=== PATIENT | female | born 1945 | race Caucasian/White ===

== ENCOUNTER 2019-03-01 15:15 | Inpatient (IN) | payer OTHER ==
--- NOTE | 2019-03-01 15:27 | PDOC ---
Rapid Medical Evaluation Chief Complaint: Wound Time Seen by Provider: 03/01/19 15:24 Medical Evaluation: Allergies Allergy/AdvReac Type Severity Reaction Status Date / Time No Known Allergies Allergy Verified 03/01/19 14:06 03/01/19 15:26 I performed a brief in-person evaluation of this patient. 73-year-old female with IDDM, SVT, HTN, and morbid obesity with chronic left heel ulceration, sent from Wound Center today for admission for cellulitis. Pertinent physical exam findings: Alert, oriented, no distress. Afebrile, hypertensive. Foot dressed in Wound Center. I have ordered the following: Basic labs, CXR, & EKG in anticipation of admission. Patient to proceed to the ED for further evaluation. Discharge Disposition - Diagnosis Cellulitis - Referrals - Patient Instructions - Post Discharge Activity
--- NOTE | 2019-03-01 18:24 | PDOC ---
Attending Attestation - Resident Resident Name: Bernardo Lara - ED Attending Attestation I have performed the following: I have examined & evaluated the patient, The case was reviewed & discussed with the resident, I agree w/resident's findings & plan, Exceptions are as noted - HPI HPI: 03/01/19 18:49 73yo hx IDDM c/b L lateral plantar heel wound, HTN presents to the ED from wound clinic for admission for cellulitis from L heel wound. Pt follows with Dr. Mcconnell for wound care, saw him today and was sent to the ED given concern for infection. Pt denies f/c, N/V. Has not been on abx for this wound in last month. Denies headache, focal weakness/numbness, dizziness, CP, SOB, abd pain. - Physicial Exam PE: 03/02/19 23:55 GENERAL: Awake, alert, and fully oriented, in no acute distress. Morbidly obese EYES: PERRLA, EOMI, sclera anicteric, conjunctiva clear ENT: Oropharynx clear without exudates. Moist mucosa NECK: Normal ROM, supple, no lymphadenopathy, JVD, or masses LUNGS: Breath sounds equal, clear to auscultation bilaterally. No wheezes, and no crackles HEART: Regular rate and rhythm, normal S1 and S2, no murmurs, rubs or gallops ABDOMEN: Soft, nontender, normoactive bowel sounds. No guarding, no rebound. No masses EXTREMITIES: L plantar lateral heel with punched in malodorous, erythematous ulcer with surrounding indurartion NEUROLOGICAL: Normal speech, cranial nerves intact, equal strenght and sensation b/l - Medical Decision Making 73yo F presents to the ED for admission of IV abx for infected heel ulcer Appears infected with surrounding cellulitis No systemic signs of infection Plan for labs, IV abx, XR, admission
--- NOTE | 2019-03-01 18:56 | PDOC ---
History of Present Illness - General Chief Complaint: Wound Stated Complaint: CELLULITIS LEFT FOOT Time Seen by Provider: 03/01/19 15:24 History Source: Patient Exam Limitations: No Limitations - History of Present Illness Initial Comments: 03/01/19 19:30 73 yo female pmh HTN, SVT, IDDM, chronic left heel ulcer presents to ED from Wound Center for cellulitis admission. Pt states she has had a chronic left heel ulcer and within the last 2 weeks has had pain, redness and warmth to the left lateral heel region that has expanded. Pt recently on antibiotics for wound and has required admission for IV antibiotics in the past. Denies F/C/N?V , abdominal pain, changes in bowel or bladder habits, CP, SOB. Past History - Past Medical History Allergies/Adverse Reactions: Allergies Allergy/AdvReac Type Severity Reaction Status Date / Time No Known Allergies Allergy Verified 03/01/19 14:06 Home Medications: Ambulatory Orders Glipizide 10 mg PO TID 04/27/18 Hydrochlorothiazide [Hctz -] 12.5 mg PO DAILY 04/27/18 Tramadol HCl 50 mg PO QID 03/01/19 Aspirin [Aspirin EC] 81 mg PO DAILY 03/02/19 Carvedilol 3.125 mg PO BID 03/02/19 Silver Sulfadiazine 1% Top Cr [Silvadene -] 1 applic TP BID 03/02/19 metFORMIN XR [Glucophage Xr -] 500 mg PO TID 03/02/19 Collagenase Clostridium Hist. [Santyl -] 1 applic TP DAILY #1 tube 03/06/19 Docusate Sodium [Colace -] 100 mg PO BID PRN #60 capsule 03/06/19 Ferrous Sulfate [Feosol] 325 mg PO BID #60 ud 03/06/19 Amox-Tr/K Cl [Augmentin - 500Mg Tablet] 1 tab PO BID 6 Days #12 tablet 03/07/19 Cyclobenzaprine HCl 5 mg PO DAILY PRN #14 tablet 03/07/19 Cardiac Disorders: Yes (SVT) COPD: No Diabetes: Yes (DM, NEUROPATHY) Disorders: Yes (KIDNEY STONES) HTN: Yes Kidney Stones: Yes - Surgical History Appendectomy: Yes - Immunization History Immunization Up to Date: No - Psycho Social/Smoking Cessation Hx Smoking History: Never smoked Have you smoked in the past 12 months: No Number of Cigarettes Smoked Daily: 0 Information on smoking cessation initiated: No Hx Alcohol Use: No Drug/Substance Use Hx: No Substance Use Type: None Review of Systems - Review of Systems Constitutional: No: Chills, Fever Respiratory: No: Shortness of Breath Cardiac (ROS): No: Chest Pain ABD/GI: No: Abdominal Distended, Constipated, Diarrhea, Nausea, Vomiting : No: Burning, Dysuria, Flank Pain, Hematuria Musculoskeletal: Yes: Other (left lateral ankle pain swelling and warmth). No: Back Pain Neurological: No: Headache, Numbness, Paresthesia *Physical Exam - Vital Signs Last Vital Signs Temp Pulse Resp BP Pulse Ox 98.4 F 69 16 189/85 H 99 03/01/19 15:25 03/01/19 15:25 03/01/19 15:25 03/01/19 15:25 03/01/19 15:25 - Physical Exam General Appearance: Yes: Nourished, Appropriately Dressed. No: Apparent Distress HEENT: positive: EOMI, EZIO Neck: positive: Supple. negative: Rigid, Carotid bruit Respiratory/Chest: positive: Lungs Clear, Normal Breath Sounds. negative: Respiratory Distress, Rapid RR, Decreased Breath Sounds, Paradoxal Breathing, Crackles, Rales, Rhonchi Cardiovascular: positive: Regular Rhythm, Regular Rate, S1, S2, Edema. negative : JVD, Murmur Vascular Pulses: Dorsalis-Pedis (R): 4+, Doralis-Pedis (L): 4+ Gastrointestinal/Abdominal: positive: Flat, Soft. negative: Pulsatile Mass, Protuberent, Distended, Guarding, Rebound, Tenderness Musculoskeletal: negative: CVA Tenderness Extremity: positive: Normal Capillary Refill, Tender, Pedal Edema, Swelling, Erythema. negative: Calf Tenderness Integumentary: positive: Erythema, Swelling Neurologic: positive: Fully Oriented, Alert, Normal Mood/Affect, Normal Response , Motor Strength /5 ED Treatment Course - LABORATORY CBC & Chemistry Diagram: 03/04/19 09:00 03/04/19 09:00 Medical Decision Making - Medical Decision Making 03/01/19 19:35 73 yo female pmh HTN, SVT, IDDM, chronic left heel ulcer presents to ED from Wound Center for cellulitis admission. Pt states she has had a chronic left heel ulcer and within the last 2 weeks has had pain, redness and warmth to the left lateral heel region that has expanded. Pt recently on antibiotics for wound and has required admission for IV antibiotics in the past. Denies F/C/N?V , abdominal pain, changes in bowel or bladder habits, CP, SOB. NAD, awake and alert Pt complains of left lateral malleolar redness, swelling, warmth and pain for 2 weeks. Black line outlines affected region from wound center, no extension noted in the ED Labs x ray and likely admission for IV antibiotics s/o to night team Discharge - Discharge Information Problems reviewed: Yes Clinical Impression/Diagnosis: Cellulitis Qualifiers: Site of cellulitis: extremity Site of cellulitis of extremity: lower extremity Laterality: left Qualified Code(s): L03.116 - Cellulitis of left lower limb Condition: Improved Disposition: PHYSICAL REHABILATION FACILITY - Follow up/Referral - Patient Discharge Instructions - Post Discharge Activity
[2019-03-01 19:45] LABS: BASO % 1.2 % (0-2.0); EOS % 3.4 % (0-4.5); HEMATOCRIT 27.8 % (32.4-45.2); HEMOGLOBIN 9.2 GM/dL (10.7-15.3); MCH 28.7 pg (25.7-33.7); MEAN CELL VOLUME 87.1 fl (80-96); MEAN PLT VOLUME 9.8 fl (7.5-11.1); MONO % 9.5 % (3.8-10.2); NEUT % 61.9 % (42.8-82.8); PLATELET COUNT 238 K/MM3 (134-434); RBC 3.19 M/mm3 (3.60-5.2); RDW 14.7 % (11.6-15.6); WHITE BLOOD COUNT 6.6 K/mm3 (4.0-10.0)
--- NOTE | 2019-03-01 20:36 | PDOC ---
*Physical Exam - Vital Signs Last Vital Signs Temp Pulse Resp BP Pulse Ox 98.4 F 69 16 189/85 H 99 03/01/19 15:25 03/01/19 15:25 03/01/19 15:25 03/01/19 15:25 03/01/19 15:25 ED Treatment Course - LABORATORY CBC & Chemistry Diagram: 03/01/19 19:00 03/01/19 19:47 - ADDITIONAL ORDERS Additional order review: 03/01/19 19:00 RBC 3.19 L MCV 87.1 MCHC 33.0 RDW 14.7 MPV 9.8 Neutrophils % 61.9 Lymphocytes % 24.0 Monocytes % 9.5 Eosinophils % 3.4 D Basophils % 1.2 Medical Decision Making - Medical Decision Making 03/01/19 20:34 Sign out received from Dr Jane Clark Paty is a 73yo woman with a PMH of HTN, SVT, IDDM, chronic left heel wound who presents from wound care with LLE cellulitis. She has been on antibiotics at home recently wihtout improvement and has needed IV antibiotics in the past. ED course so far notable for: - Malodorous, erythematous, edematous, warm wound on exam - Difficulty obtaining access. US-guided IV placed by Dr Lara - Labs pending 03/01/19 22:02 - Labs without significant abnormalities - EKG completed. NSR, HR 70, normal intervals, left axis. No t-wave or ST abnormalities - Will send microblog for admission. 03/01/19 22:31 - Sign out given to Dr Jovan Clay. Will admit to tele for additional workup Discussed with Dr Bruce Callahan PGY2 Discharge - Discharge Information Problems reviewed: Yes Clinical Impression/Diagnosis: Cellulitis Qualifiers: Site of cellulitis: extremity Site of cellulitis of extremity: lower extremity Laterality: left Qualified Code(s): L03.116 - Cellulitis of left lower limb Condition: Stable - Admission Yes - Follow up/Referral Referrals: Camacho Tapia MD [Primary Care Provider] - - Patient Discharge Instructions - Post Discharge Activity
[2019-03-01 20:53] LABS: ALBUMIN 3.4 g/dl (3.4-5.0); BILIRUBIN,TOTAL 0.4 mg/dL (0.2-1); BLOOD UREA NITROGEN 33.1 mg/dL (7-18); CALCIUM 9.2 mg/dL (8.5-10.1); POTASSIUM 4.6 mmol/L (3.5-5.1)
[2019-03-01] MEDS ORDERED: PIPERACILLIN/TAZOB 4.5 GM 4.5 GM in DEXTROSE 5%-WATER - 100 ML IVPB ONE (21:44)
[2019-03-01] MEDS ORDERED: VANCOMYCIN 1,000 MG in DEXTROSE 5%-WATER - 250 ML IVPB ONE (21:44)
--- NOTE | 2019-03-01 22:35 | PN ---
Teaching Attending Note Name of Resident: Jovan Clay ATTENDING PHYSICIAN STATEMENT I saw and evaluated the patient. I reviewed the resident's note and discussed the case with the resident. I agree with the resident's findings and plan as documented. SUBJECTIVE: Patient is a 73 year old woman with a PMH of Morbid obesity, HTN, SVT, Insulin- treated DM, Diabetic neuropathy, Kidney stones and Chronic left heel ulcer who presents to ER from Wound Center for admission for cellulitis. Patient states she has had a chronic left heel ulcer and within the last 2 weeks has had pain, redness and warmth to the left lateral heel region that has expanded. Was recently on antibiotics for the wound and has required admission for IV antibiotics in the past. Denies fever, chills, nausea, vomiting, chest pain, dysuria, palpitations, headache, abdominal pain, changes in bowel or bladder habits or SOB. Denies alcohol, tobacco or illicit drug use. No sick contacts or recent travels. OBJECTIVE: Alert Vital Signs Period Temp Pulse Resp BP Sys/Keenan Pulse Ox Last 24 Hr 98.4 F 69-75 16-20 172-189/74-85 97-99 HEENT: No Jaundice, eye redness or discharge, PERRLA, EOMI. Normocephalic, atraumatic. External ears are normal and hearing is grossly intact. No nasal discharge. Neck: Supple, nontender. No palpable adenopathy or thyromegaly. No JVD Chest: Good effort. Clear to auscultation and percussion. Heart: Regular. No S3, rub or murmur Abdomen: Not distended, soft, nontender and no HSM. No rebound or guarding. Normal bowel sounds. Ext: Peripheral pulses intact. Leg edema. Chronic stasis dermatitis changes. Left Heel ulcer with no discharge and not malodorous. Skin: Warm and dry. No petechiae, rash or ecchymosis. Neuro: Alert. Oriented x3. CN 2-12 grossly intact. Sensation grossly intact in all four extremities and DTR are symmetric. Psych: Appropriate mood and affect. Good insight. Home Medications Medication Instructions Recorded Glipizide 10 mg PO TID 04/27/18 Hydrochlorothiazide [Hctz -] 12.5 mg PO DAILY 04/27/18 Losartan Potassium 50 mg PO DAILY 04/27/18 Metformin HCl [Glucophage] 500 mg PO TID 04/27/18 Tramadol HCl 50 mg PO QID 03/01/19 Abnormal Lab Results 03/01/19 03/01/19 19:00 19:47 RBC 3.19 L Hgb 9.2 L Hct 27.8 L D Chloride 110 H Anion Gap 6 L BUN 33.1 H Random Glucose 72 L AST 39 H Alkaline Phosphatase 44 L ASSESSMENT AND PLAN: 1. LLE infected wound and cellulitis - Left foot xray shows 5th transmetatarsal amputation and no gas collection or fracture. Wound culture sent. Will get LLE MRI. Being treated with IV vancomycin and zosyn. Provide daily wound care, consult ID and Wound care. EKG shows NSR with no changes. Urinalysis pending. Will continue comprehensive care for all of patients comorbid conditions. 2. DM For now, we will hold the home diabetes drugs and implement sliding scale insulin regimen. Provide comprehensive diabetes care with patient teaching and counseling about the importance of adherence to prescribed diabetes regimen, euglycemia, eye care and foot care. 3. CKD/DEVIKA - Has risk factors for CKD. Urinalysis pending. Will check CPK, get kidney sonogram, urine protein/creatinine ratio, hydrate gently and monitor urine output. Consult nephrology and avoid nephrotoxic agents such as NSAIDS, aminoglycosides, contrast dyes and certain Alternative medicine products. 4. Anemia - Cause unclear. Will do basic anemia work up including serial stool guaiacs, reticulocyte count and iron studies. Would benefit from Procrit therapy once iron replete. Consult GI for possible colonoscopy. 5. Morbid Obesity Counseled on the risks associated with obesity. Will provide patient all the necessary assistance, counseling and positive reinforcement to facilitate weight loss. Consult pearl technician. 6. Uncontrolled Hypertension - Restart suitable outpatient antihypertensive drugs when clinically appropriate. Revise regimen to ensure [id number] excellent BP control and nurses' association counselor patient on the injurious effects of uncontrolled hypertension. Nonpharmacologic measures to control hypertension like weight loss, salt restriction and exercise discussed. Importance of adherence to treatment regimen and attainment of normotension emphasized. 7. DVT prophylaxis - Heparin 5000u sq tid. 8. Advance directives - Full code
[2019-03-01] MEDS ORDERED: LOSARTAN POTASSIUM 25 MG TABLET PO ONE (22:36)
--- NOTE | 2019-03-01 23:45 | HP ---
CHIEF COMPLAINT: Sent by Podiatry for IV ABx for cellulites PCP: Dr Tapia HISTORY OF PRESENT ILLNESS: Pt is a 73 y/o F with a significant past medical history of NIDDM, HTN, osteomyelitis, chronic left heel wound, and SVT who presented to [facility] at the behest of her Field Marketer due to a left lower extremity heel wound. Pt endorses she was at her wound care appointment earlier today. Pt's left heel was observed to be erythematous and warm and was subsequently referred to our emergency department for intravenous antibiotics. Pt denies any fever, nausea/ vomiting, or chills. Does endorse that she underwent an amputation of her left pinky toe due to osteomyelitis around April of last year. She was also placed on IV antibiotics at that time. Denies unintentional weight loss, rectal bleeding, melena, nausea/vomiting, or fevers. PMH as above Social- Denies T/A/D SurgHx- Appendectomy, Lithotripsy, Left toe amputation, cardiac ablation for SVT FH-Mother CAD, Breast Cancer, Alzheimer's, DM. Sister Stomach cancer. NKDA ER course was notable for: (1) BP 189/85 (2) Vanc/Zosyn HOME MEDICATIONS: Home Medications Medication Instructions Recorded Glipizide 10 mg PO TID 04/27/18 Hydrochlorothiazide [Hctz -] 12.5 mg PO DAILY 04/27/18 Losartan Potassium 50 mg PO DAILY 04/27/18 Metformin HCl [Glucophage] 500 mg PO TID 04/27/18 Tramadol HCl 50 mg PO QID 03/01/19 REVIEW OF SYSTEMS CONSTITUTIONAL: Absent: fever, chills, diaphoresis, generalized weakness, malaise, loss of appetite, weight change HEENT: Absent: rhinorrhea, nasal congestion, throat pain, throat swelling, difficulty swallowing, mouth swelling, ear pain, eye pain, visual changes CARDIOVASCULAR: Absent: chest pain, syncope, palpitations, irregular heart rate, lightheadedness , peripheral edema RESPIRATORY: Absent: cough, shortness of breath, dyspnea with exertion, orthopnea, wheezing, stridor, hemoptysis GASTROINTESTINAL: PRESENT:, constipation GENITOURINARY: Absent: dysuria, frequency, urgency, hesitancy, hematuria, flank pain, genital pain MUSCULOSKELETAL: Absent: myalgia, arthralgia, joint swelling, back pain, neck pain SKIN: Absent: rash, itching, pallor HEMATOLOGIC/IMMUNOLOGIC: Absent: easy bleeding, easy bruising, lymphadenopathy, frequent infections ENDOCRINE: Absent: unexplained weight gain, unexplained weight loss, heat intolerance, cold intolerance NEUROLOGIC: Absent: headache, focal weakness or paresthesias, dizziness, unsteady gait, seizure, mental status changes, bladder or bowel incontinence PSYCHIATRIC: Absent: anxiety, depression, suicidal or homicidal ideation, hallucinations. PHYSICAL EXAMINATION Vital Signs - 24 hr 03/01/19 03/01/19 15:25 20:51 Temperature 98.4 F Pulse Rate 69 Pulse Rate [ 75 Left Radial] Respiratory 16 20 Rate Blood Pressure 189/85 H Blood Pressure 172/74 H [Left Arm] O2 Sat by Pulse 99 97 Oximetry (%) GENERAL: AAOx3 NAD HEAD: Normal with no signs of trauma. EYES: EOMI Sclera Clear EARS, NOSE, THROAT: MMM NECK: Supple LUNGS: CTAB HEART: WILLY+ S1S2 RRR ABDOMEN: Soft, NDNT, obese LOWER EXTREMITIES: Lymphadema bilaterally with superimposed stasis dermatitis. Left Heel ulcer clean margins non oozing no odor appreciated NEUROLOGICAL: Cranial nerves II-XII intact. Normal speech. PSYCHIATRIC: Cooperative. Good eye contact. Appropriate mood and affect. Laboratory Results - last 24 hr 03/01/19 03/01/19 03/01/19 19:00 19:47 19:47 WBC 6.6 RBC 3.19 L Hgb 9.2 L Hct 27.8 L D MCV 87.1 MCH 28.7 MCHC 33.0 RDW 14.7 Plt Count 238 MPV 9.8 Absolute Neuts (auto) 4.1 Neutrophils % 61.9 Lymphocytes % 24.0 Monocytes % 9.5 Eosinophils % 3.4 D Basophils % 1.2 Nucleated RBC % 0 Sodium 140 Potassium 4.6 Chloride 110 H Carbon Dioxide 25 Anion Gap 6 L BUN 33.1 H Creatinine 1.0 Est GFR (CKD-EPI)AfAm 65.18 Est GFR (CKD-EPI)NonAf 56.24 Random Glucose 72 L Lactic Acid 0.8 Calcium 9.2 Total Bilirubin 0.4 AST 39 H ALT 18 Alkaline Phosphatase 44 L Total Protein 7.0 Albumin 3.4 ASSESSMENT/PLAN: Pt is a 73 y/o F with a significant past medical history of NIDDM, HTN, osteomyelitis, chronic left heel wound, and SVT who presented to [facility] at the behest of her Field Marketer due to a left lower extremity heel wound. # Left Lower Extremity Ulcer - Received Vancomycin and Zosyn in ED. -Will continue on above broad spectrum ABx until cultures return -ID Consulted. Appreciate recs. -Blood Cultures/Wound Culture -MRI LLE to assess for Osteomyelitis -Podiatry consulted. Appreciate recs #Anemia 2/2 possible GI source -GI consult for possible colonoscopy -Iron studies including transferrin, ferritin, iron and TIBC. -Stool for occult blood #NIDDM -Hold oral hypoglycemics. Implement Insulin Sliding Scale ACHS #HTN -Medications reconciled with patient. Endorses she no longer takes Losartan. -C/w Coreg and HCTZ # FEN -No standing fluids -Monitor Electrolytes -Diabetic Diet #DVT ppx -SCDs Visit type - Emergency Visit Emergency Visit: Yes ED Registration Date: 03/01/19 Care time: The patient presented to the Emergency Department on the above date and was hospitalized for further evaluation of their emergent condition. - New Patient This patient is new to me today: Yes Date on this admission: 03/02/19 - Critical Care Critical Care patient: No ATTENDING PHYSICIAN STATEMENT I saw and evaluated the patient. I reviewed the resident's note and discussed the case with the resident. I agree with the resident's findings and plan as documented. SUBJECTIVE: OBJECTIVE: ASSESSMENT AND PLAN:
[2019-03-02] MEDS ORDERED: LOSARTAN POTASSIUM 50 MG TABLET (FP) ONE (00:09)
[2019-03-02] MEDS ORDERED: PIPERACILLIN/TAZOB 4.5 GM 4.5 GM/100 ML BAG IVPB ONE (00:09)
[2019-03-02] MEDS ORDERED: VANCOMYCIN 1 GRAM (PRE-DOCKED) 1,000 MG/250 ML BAG IVPB ONE (00:09)
[2019-03-02] MEDS ORDERED: HYDROCHLOROTHIAZIDE 25 MG TABLET (FP) ONE (00:48)
[2019-03-02] MEDS: HYDROCHLOROTHIAZIDE 12.5 MG CAPSULE (FP) PO SCH ×3 (01:15→10:46)
[2019-03-02] MEDS: HEPARIN NA (PORCINE) 5,000 UNITS/ML 1ML VIAL SQ SCH ×4 (01:36→13:08)
[2019-03-02 02:55] VITALS: BMI 48.2
[2019-03-02] MEDS: ACETAMINOPHEN 325 MG TABLET (FP) PO PRN (04:00)
[2019-03-02] MEDS: CARVEDILOL 6.25 MG TABLET (FP) PO SCH ×3 (06:06→22:08)
[2019-03-02] MEDS: INSULIN SLIDING SCALE (NOVOLOG) 1 VIAL SQ SCH ×4 (06:09→22:07)
--- NOTE | 2019-03-02 09:01 | CON.GI ---
Consult Consult Specialty:: GI Referred by:: Hospitalist Service Reason for Consultation:: Anemia - History of Present Illness Chief Complaint: Left heel foot wound History of Present Illness: 73F admitted for evaluation of left heel wound. Called to evaluate anemia. Patient states that she has spoken to her PMD Dr. Tapia regarding her anemia in the past. She denies nausea, vomiting, dysphagia, odynophagia, unintentional weight loss, rectal bleeding, melena, abdominal pain. She does have chronic constipation. She also describes frequent gross hematuria that has been occurring chronically. She has not had work-up as of yet. She has never had an EGD or colonoscopy and states that she does not want these procedures. She sister at age 63 of a "stomach cancer" as well as her maternal GF and GM. There is no family history of colon cancer that she is aware of. - History Source History Provided By: Patient - Past Medical History FRAMING AND HANGING: Yes: Peripheral Neuropathy Cardio/Vascular: Yes: HTN, Other (PSVT) Heme/Onc: Yes: Anemia Endocrine: Yes: Diabetes Mellitus - Past Surgical History Past Surgical History: Yes: Appendectomy Additional Surgical History: Left 5th toe amputation - Alcohol/Substance Use Hx Alcohol Use: No History of Substance Use: reports: None - Smoking History Smoking history: Never smoked Have you smoked in the past 12 months: No Aproximately how many cigarettes per day: 0 - Social History Usual Living Arrangement: Alone ADL: Independent Place of : [facility] History of Recent Travel: No Home Medications - Allergies Allergies/Adverse Reactions: Allergies Allergy/AdvReac Type Severity Reaction Status Date / Time No Known Allergies Allergy Verified 03/01/19 14:06 - Home Medications Home Medications: Ambulatory Orders Glipizide 10 mg PO TID 04/27/18 Hydrochlorothiazide [Hctz -] 12.5 mg PO DAILY 04/27/18 Metformin HCl [Glucophage] 500 mg PO TID 04/27/18 Tramadol HCl 50 mg PO QID 03/01/19 Aspirin [Aspirin EC] 81 mg PO DAILY 03/02/19 Carvedilol 6.25 mg PO TID 03/02/19 Family Medical History Family Hx Cancer: Grandmother (maternal) (Stomach cancer), Grandfather (maternal ) (stomach cancer), Sister ( 63 of a "stomach cancer") Review of Systems - Review of Systems Constitutional: denies: Chills, Unintentional Wgt. Loss Cardiovascular: reports: Edema Gastrointestinal: reports: Constipation. denies: Abdominal Pain, Diarrhea, Dysphagia, Melena, Nausea, Rectal Bleeding, Vomiting Genitourinary: reports: Hematuria Physical Exam-GI Vital Signs: Vital Signs Temperature 98.0 F 03/02/19 07:36 Pulse Rate 68 03/02/19 07:36 Respiratory Rate 16 03/02/19 07:36 Blood Pressure 136/64 03/02/19 07:36 O2 Sat by Pulse Oximetry (%) 100 03/02/19 03:00 Constitutional: Yes: Calm Eyes: No: Sclera Icterus Cardiovascular: Yes: Regular Rate and Rhythm Respiratory: Yes: CTA Bilaterally Gastrointestinal Inspection: Yes: Other (Limited exam due to large pannus) ...Auscultate: Yes: Normoactive Bowel Sounds ...Palpate: Yes: Soft. No: Hepatomegaly, Splenomegaly, Tenderness ...Percussion: No: Tympanitic ...Rectal Exam: Yes: Deferred (Refused by patient), Other Edema: Yes Edema: LLE: 2+, RLE: 2+ Neurological: Yes: Alert Labs: CBC, BMP 03/01/19 19:00 03/01/19 19:47 Hepatic Panel Total Bilirubin 0.4 mg/dL (0.2-1) 03/01/19 19:47 AST 39 U/L (15-37) H 03/01/19 19:47 ALT 18 U/L (13-61) 03/01/19 19:47 Alkaline Phosphatase 44 U/L (45-117) L 03/01/19 19:47 Albumin 3.4 g/dl (3.4-5.0) 03/01/19 19:47 Problem List - Problems (1) Anemia Assessment/Plan: Normocytic without acute focal GI complaints: Discussed EGD/Colonoscopy with Ms. Newman to exclude GI etiology of anemia such as bleeding blood vessel, PUD, polyps or cancers of the GI tract. Discussed potential risks of the procedures like but not limited to bleeding, perforation requiring surgery to repair, infection, sedation medication effects all of which could be potentially life threatening. She has declined these procedures. Advise: Anemia work-up per primary team. Consider hematology evaluation Evaluation of persistent gross hematuria Stool for occult blood Obtain previous lab work from Dr. Tapia to compare and see what work-up has been performed Code(s): D64.9 - ANEMIA, UNSPECIFIED (2) Abnormal liver enzymes Assessment/Plan: Mild elevation of AST: Advise: Repeating hepatic panel. If transaminases still elevated, obtain abdominal US to evaluate liver parancyma, hepatitis A/B panel, HCV antibody, CPK Avoid hepatotoxic agents Obtain previous records from Dr. Tapia to comapre Code(s): R74.8 - ABNORMAL LEVELS OF OTHER SERUM ENZYMES
[2019-03-02] MEDS ORDERED: DEXTROSE 5%-WATER 100 ML IVPB ONE (09:13)
[2019-03-02] MEDS ORDERED: PIPERACILLIN/TAZOBACTAM 4.5 GM VIAL IVPB ONE (09:13)
[2019-03-02 09:22] LABS: BASO % 1.5 % (0-2.0); EOS % 4.3 % (0-4.5); HEMATOCRIT 26.2 % (32.4-45.2); HEMOGLOBIN 8.8 GM/dL (10.7-15.3); LYMPH % 24.6 % (8-40); MCH 28.9 pg (25.7-33.7); MCHC 33.8 g/dl (32.0-36.0); MEAN CELL VOLUME 85.4 fl (80-96); MEAN PLT VOLUME 8.5 fl (7.5-11.1); MONO % 8.7 % (3.8-10.2); NEUT % 60.9 % (42.8-82.8); PLATELET COUNT 235 K/MM3 (134-434); RBC 3.06 M/mm3 (3.60-5.2); RDW 14.3 % (11.6-15.6); WHITE BLOOD COUNT 3.8 K/mm3 (4.0-10.0)
[2019-03-02] MEDS: ASPIRIN COATED 81 MG TABLET.EC PO SCH (09:24)
[2019-03-02 09:41] LABS: INR 1.05 (0.83-1.09); PROTHROMBIN TIME (PATIENT) 12.4 SEC (9.7-13.0)
[2019-03-02 09:43] LABS: ACTIVATED PTT 28.9 SECONDS (25.2-36.5)
[2019-03-02 10:00] LABS: ALBUMIN 3.4 g/dl (3.4-5.0); BILIRUBIN,TOTAL 0.4 mg/dL (0.2-1); BLOOD UREA NITROGEN 25.8 mg/dL (7-18); CALCIUM 9.2 mg/dL (8.5-10.1); CREATININE 1.2 mg/dL (0.55-1.3); MAGNESIUM 2.2 mg/dL (1.8-2.4); PHOSPHOROUS 4.4 mg/dL (2.5-4.9); POTASSIUM 4.2 mmol/L (3.5-5.1)
[2019-03-02] MEDS ORDERED: PIPERACILLIN/TAZOB 4.5 GM 4.5 GM in DEXTROSE 5%-WATER 100 ML IVPB SCH (10:00)
--- NOTE | 2019-03-02 13:25 | EKG ---
Test Reason : Blood Pressure : / mmHG Vent. Rate : 070 BPM Atrial Rate : 070 BPM P-R Int : 148 ms QRS Dur : 096 ms QT Int : 420 ms P-R-T Axes : 042 -23 076 degrees QTc Int : 453 ms NORMAL SINUS RHYTHM CANNOT RULE OUT ANTEROSEPTAL INFARCT , AGE UNDETERMINED WHEN COMPARED WITH ECG OF 17-SEP-2014 12:59, NO SIGNIFICANT CHANGE WAS FOUND Confirmed by MELINDA ESPINAL MD ([id number]) on 03/02/2019 1:25:14 PM Referred By: Confirmed By:MELINDA ESPINAL MD
--- NOTE | 2019-03-02 14:56 | CON.ID ---
Consult Consult Specialty:: infectious diseases Referred by:: Kristyn Reason for Consultation:: left heel wound - History of Present Illness Chief Complaint: non healing wound of the left heel with pain History of Present Illness: 73 yo female pmh HTN, SVT, IDDM, left heel ulcer and now developing cellulitis of the left leg coming in for admission according to her the cellulitis has been going on for last 2 weeks and also the tenderness is present Pt recently on antibiotics for wound and has required admission for IV antibiotics in the past. Denies F/C/N?V, abdominal pain, changes in bowel or bladder habits, CP, SOB. 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 Cardio/Vascular: Yes: HTN, Other (PSVT) Endocrine: Yes: Diabetes Mellitus - Past Surgical History Past Surgical History: Yes: Appendectomy Additional Surgical History: Left 5th toe amputation - Alcohol/Substance Use Hx Alcohol Use: No History of Substance Use: reports: None - Smoking History Smoking history: Never smoked Have you smoked in the past 12 months: No Aproximately how many cigarettes per day: 0 - Social History Usual Living Arrangement: Alone ADL: Independent History of Recent Travel: No Home Medications - Allergies Allergies/Adverse Reactions: Allergies Allergy/AdvReac Type Severity Reaction Status Date / Time No Known Allergies Allergy Verified 03/01/19 14:06 - Home Medications Home Medications: Ambulatory Orders Glipizide 10 mg PO TID 04/27/18 Hydrochlorothiazide [Hctz -] 12.5 mg PO DAILY 04/27/18 Metformin HCl [Glucophage] 500 mg PO TID 04/27/18 Tramadol HCl 50 mg PO QID 03/01/19 Aspirin [Aspirin EC] 81 mg PO DAILY 03/02/19 Carvedilol 6.25 mg PO TID 03/02/19 metFORMIN XR [Glucophage Xr -] 500 mg PO TID 03/02/19 Physical Exam Vital Signs: Vital Signs Temperature 98.5 F 03/02/19 13:38 Pulse Rate 69 03/02/19 13:38 Respiratory Rate 18 03/02/19 13:38 Blood Pressure 155/86 03/02/19 13:38 O2 Sat by Pulse Oximetry (%) 100 03/02/19 09:00 Constitutional: Yes: Well Nourished, Mild Distress, Obese, Other Eyes: Yes: Conjunctiva Clear Cardiovascular: Yes: Regular Rate and Rhythm Respiratory: Yes: Regular, CTA Bilaterally Gastrointestinal: Yes: Normal Bowel Sounds, Soft Musculoskeletal: Yes: WNL Extremities: Yes: Other Wound/Incision: Yes: Dressing Removed, Other (left heel superfical ulcer with cellulitis of the left leg) Neurological: Yes: Alert, Oriented Psychiatric: Yes: Alert, Oriented Labs: CBC, BMP 03/02/19 08:41 03/02/19 08:41 Imaging - Results X-ray: Report Reviewed, Image Reviewed Assessment/Plan 73 y/o F with a significant past medical history of NIDDM, HTN, osteomyelitis, chronic left heel wound, and SVT dm left heel ulcer left leg cellulitis tenderness left leg plan abx elevation of leg wound care await for cx reports rest as per the team
--- NOTE | 2019-03-02 16:12 | PN ---
Physical Exam: SUBJECTIVE: Patient seen and examined. Patient denies chest pain, abd pain, SOB , fever, chills. Patient is concerned about her anemia and also complains of left leg pain that has been going on for the last 3 weeks. States that she has occasional muscle spasms in her left thigh and pain that shoots down the front of her leg. Patient states that she wants her home DM meds and will refuse to take insulin. Explained to patient that it is hospital policy to treat with insulin while in the hospital but patient continues to refuse treatment. OBJECTIVE: Vital Signs Period Temp Pulse Resp BP Sys/Keenan Pulse Ox Last 24 Hr 98.0 F-98.9 F 68-87 16-20 136-191/64-90 97-100 GENERAL: The patient is awake, alert, and fully oriented, in no acute distress. HEAD: Normal with no signs of trauma. EYES: EOMI, no ptosis ENT: Moist mucous membranes NECK: trachea midline, supple LUNGS: Breath sounds equal, clear to auscultation bilaterally, no wheezes, no crackles, no accessory muscle use. HEART: Regular rate and rhythm, S1, S2 without murmur, rub or gallop. ABDOMEN: Soft, nontender, nondistended, normoactive bowel sounds, no guarding EXTREMITIES: 2+ pulses, warm, well-perfused, bilateral edema of lower extremities NEUROLOGICAL: Normal speech, gait stable with a rolling walker. SKIN: Warm, dry, normal turgor. Stage 1 ulcer on left heel, no foul odor or drainage noted. Left 5th digit amputation noted, no cellulitis of amputation site appreciated Laboratory Results - last 24 hr 03/01/19 03/01/19 03/01/19 19:00 19:47 19:47 WBC 6.6 RBC 3.19 L Hgb 9.2 L Hct 27.8 L D MCV 87.1 MCH 28.7 MCHC 33.0 RDW 14.7 Plt Count 238 MPV 9.8 Absolute Neuts (auto) 4.1 Neutrophils % 61.9 Lymphocytes % 24.0 Monocytes % 9.5 Eosinophils % 3.4 D Basophils % 1.2 Nucleated RBC % 0 Retic Count PT with INR INR PTT (Actin FS) Sodium 140 Potassium 4.6 Chloride 110 H Carbon Dioxide 25 Anion Gap 6 L BUN 33.1 H Creatinine 1.0 Est GFR (CKD-EPI)AfAm 65.18 Est GFR (CKD-EPI)NonAf 56.24 POC Glucometer Random Glucose 72 L Lactic Acid 0.8 Calcium 9.2 Phosphorus Magnesium Iron TIBC Iron Saturation Unsaturated IBC Ferritin Total Bilirubin 0.4 AST 39 H ALT 18 Alkaline Phosphatase 44 L Total Protein 7.0 Albumin 3.4 Vitamin B12 Serum Folate 03/02/19 03/02/19 03/02/19 06:08 08:41 08:41 WBC 3.8 L RBC 3.06 L Hgb 8.8 L Hct 26.2 L MCV 85.4 MCH 28.9 MCHC 33.8 RDW 14.3 Plt Count 235 MPV 8.5 D Absolute Neuts (auto) 2.3 Neutrophils % 60.9 Lymphocytes % 24.6 Monocytes % 8.7 Eosinophils % 4.3 Basophils % 1.5 Nucleated RBC % 0 Retic Count PT with INR 12.40 INR 1.05 PTT (Actin FS) 28.9 Sodium Potassium Chloride Carbon Dioxide Anion Gap BUN Creatinine Est GFR (CKD-EPI)AfAm Est GFR (CKD-EPI)NonAf POC Glucometer 125 Random Glucose Lactic Acid Calcium Phosphorus Magnesium Iron TIBC Iron Saturation Unsaturated IBC Ferritin Total Bilirubin AST ALT Alkaline Phosphatase Total Protein Albumin Vitamin B12 Serum Folate 03/02/19 03/02/19 03/02/19 08:41 08:41 08:41 WBC RBC Hgb Hct MCV MCH MCHC RDW Plt Count MPV Absolute Neuts (auto) Neutrophils % Lymphocytes % Monocytes % Eosinophils % Basophils % Nucleated RBC % Retic Count 1.77 H PT with INR INR PTT (Actin FS) Sodium 139 Potassium 4.2 Chloride 108 H Carbon Dioxide 24 Anion Gap 7 L BUN 25.8 H Creatinine 1.2 Est GFR (CKD-EPI)AfAm 52.29 Est GFR (CKD-EPI)NonAf 45.11 POC Glucometer Random Glucose 203 H Lactic Acid Calcium 9.2 Phosphorus 4.4 Magnesium 2.2 Iron 42 L TIBC 300 Iron Saturation 14 L Unsaturated IBC 258 Ferritin 37.0 Total Bilirubin 0.4 AST 10 L ALT 16 Alkaline Phosphatase 46 Total Protein 7.0 Albumin 3.4 Vitamin B12 404 Serum Folate 18 H 03/02/19 11:15 WBC RBC Hgb Hct MCV MCH MCHC RDW Plt Count MPV Absolute Neuts (auto) Neutrophils % Lymphocytes % Monocytes % Eosinophils % Basophils % Nucleated RBC % Retic Count PT with INR INR PTT (Actin FS) Sodium Potassium Chloride Carbon Dioxide Anion Gap BUN Creatinine Est GFR (CKD-EPI)AfAm Est GFR (CKD-EPI)NonAf POC Glucometer 200 Random Glucose Lactic Acid Calcium Phosphorus Magnesium Iron TIBC Iron Saturation Unsaturated IBC Ferritin Total Bilirubin AST ALT Alkaline Phosphatase Total Protein Albumin Vitamin B12 Serum Folate Active Medications Generic Name Dose Route Start Last Admin Trade Name Freq PRN Reason Stop Dose Admin Acetaminophen 650 mg 03/02/19 03:32 03/02/19 04:00 Tylenol - PO 650 mg Q6H PRN Administration Fever Or Pain Aspirin 81 mg 03/02/19 10:00 03/02/19 09:24 Ecotrin - PO 81 mg DAILY DAVID Administration Carvedilol 6.25 mg 03/02/19 06:00 03/02/19 13:08 Coreg - PO 6.25 mg TID DAVID Administration Heparin Sodium (Porcine) 5,000 unit 03/01/19 23:45 03/02/19 13:08 Heparin - SQ 5,000 unit TID DAVID Administration Hydrochlorothiazide 12.5 mg 03/02/19 10:00 03/02/19 09:35 Hctz - PO 12.5 mg DAILY DAVID Administration Piperacillin Sod/Tazobactam 100 mls @ 200 mls/hr 03/02/19 10:00 Sod 4.5 gm/ Dextrose IVPB 03/03/19 09:59 Q8H-IV DAVID Protocol Vancomycin HCl 1,000 mg in 250 mls @ 166.667 mls/hr 03/03/19 02:00 Vancomycin (Pre-Docked) IVPB 03/03/19 03:29 ONCE ONE Protocol Piperacillin Sod/Tazobactam 100 mls @ 200 mls/hr 03/02/19 10:00 03/02/19 09: 24 Sod 4.5 gm/ Dextrose IVPB 03/03/19 02:29 200 mls/hr Q8H-IV DAVID Administration Protocol Ampicillin Sodium/Sulbactam 100 mls @ 200 mls/hr 03/02/19 15:15 Sodium 3 gm/ Sodium Chloride IVPB Q8H-IV DAVID Insulin Aspart 1 vial 03/02/19 07:00 03/02/19 11:19 Novolog Vial Sliding Scale - SQ Not Given ACHS DAVID Protocol ASSESSMENT/PLAN: Pt is a 73 y/o F with a significant past medical history of NIDDM, HTN, osteomyelitis, chronic left heel wound, and SVT who presented to [facility] 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 #Left Lower Extremity Ulcer - Received Vancomycin and Zosyn in ED - Started on Unasyn as per ID - ID Consulted (Dr. Lange) - Blood Cultures, Wound Cultures pending - MRI to r/o osteomyelitis of LLE - Podiatry consulted (Dr. Clarke) #Anemia 2/2 possible GI source - GI consulted (Dr. Longoria) - patient refusing colonoscopy, EGD as per GI - Iron low at 42. Normal TIBC, Ferritin, transferrin pending - Stool for occult blood ordered #NIDDM - ISS - BGMs - patient refusing to take Insulin at this time #HTN - Patient states she no longer takes Losartan - C/w Coreg and HCTZ #FEN - No standing fluids - Monitor and replete bobby as needed - Diabetic Diet #DVT ppx - SCDs - Holding chemical abx in case procedural intervention is needed Visit type - Emergency Visit Emergency Visit: Yes ED Registration Date: 03/01/19 Care time: The patient presented to the Emergency Department on the above date and was hospitalized for further evaluation of their emergent condition. - New Patient This patient is new to me today: Yes Date on this admission: 03/02/19 - Critical Care Critical Care patient: No ATTENDING PHYSICIAN STATEMENT I saw and evaluated the patient. I reviewed the resident's note and discussed the case with the resident. I agree with the resident's findings and plan as documented. SUBJECTIVE: OBJECTIVE: ASSESSMENT AND PLAN:
[2019-03-02] MEDS: AMPICILLIN NA/SULBACTAM NA 3 GM in SODIUM CHLORIDE 100 ML IVPB SCH ×2 (17:31→17:32)
--- NOTE | 2019-03-02 17:31 | CONSULT ---
Consult Consult Specialty:: Podiatry Reason for Consultation:: Cellulitis with wound left heel. - History of Present Illness History of Present Illness: chronic wound left heel. 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 Cardio/Vascular: Yes: HTN, Other (PSVT) Endocrine: Yes: Diabetes Mellitus - Past Surgical History Past Surgical History: Yes: Appendectomy Additional Surgical History: Left 5th toe amputation - Alcohol/Substance Use Hx Alcohol Use: No History of Substance Use: reports: None - Smoking History Smoking history: Never smoked Have you smoked in the past 12 months: No Aproximately how many cigarettes per day: 0 - Social History Usual Living Arrangement: Alone ADL: Independent History of Recent Travel: No Home Medications - Allergies Allergies/Adverse Reactions: Allergies Allergy/AdvReac Type Severity Reaction Status Date / Time No Known Allergies Allergy Verified 03/01/19 14:06 - Home Medications Home Medications: Ambulatory Orders Glipizide 10 mg PO TID 04/27/18 Hydrochlorothiazide [Hctz -] 12.5 mg PO DAILY 04/27/18 Tramadol HCl 50 mg PO QID 03/01/19 Aspirin [Aspirin EC] 81 mg PO DAILY 03/02/19 Carvedilol 3.125 mg PO BID 03/02/19 Silver Sulfadiazine 1% Top Cr [Silvadene -] 1 applic TP BID 03/02/19 metFORMIN XR [Glucophage Xr -] 500 mg PO TID 03/02/19 Physical Exam Vital Signs: Vital Signs Temperature 98.5 F 03/02/19 13:38 Pulse Rate 69 03/02/19 13:38 Respiratory Rate 18 03/02/19 13:38 Blood Pressure 155/86 03/02/19 13:38 O2 Sat by Pulse Oximetry (%) 100 03/02/19 09:00 Extremities: Yes: Other (+morbid obesity, +cellulitis lateal left heel, +grde 1- 2 wound plantar left heel, -mal odor, +ascending cellulitis, -drinage) Labs: CBC, BMP 03/02/19 08:41 03/02/19 08:41 Assessment/Plan cellulitis grade 1-2 wound Betadine dressing left heel. IVABX as per ID. Will follow. MRI today.
--- NOTE | 2019-03-02 19:11 | PN ---
Teaching Attending Note Name of Resident: Juan Manuel Norris ATTENDING PHYSICIAN STATEMENT I saw and evaluated the patient. I reviewed the resident's note and discussed the case with the resident. I agree with the resident's findings and plan as documented. SUBJECTIVE: Complains of pain LLE with associated erythema and tenderness of foot/ankle and LLE weakness due to pain. OBJECTIVE: Afebrile, Hemodynamicaly stable Last Vital Signs Temp Pulse Resp BP Pulse Ox 98.5 F 69 18 155/86 100 03/02/19 13:38 03/02/19 13:38 03/02/19 13:38 03/02/19 13:38 03/02/19 09:00 HEENT - Atraumatic, Normocephalic. Lungs - clear to auscultation Heart - S1, S2, RRR Abdomen - High BMI. Soft, non-tender. Bowel Sounds normal. Extremities - Bilateral edea, chronic venous stasis with dermatitis, ulcers lateral aspect L ankle, no discharge or collection. Laboratory Results - last 24 hr 03/01/19 03/01/19 03/01/19 19:00 19:47 19:47 WBC 6.6 RBC 3.19 L Hgb 9.2 L Hct 27.8 L D MCV 87.1 MCH 28.7 MCHC 33.0 RDW 14.7 Plt Count 238 MPV 9.8 Absolute Neuts (auto) 4.1 Neutrophils % 61.9 Lymphocytes % 24.0 Monocytes % 9.5 Eosinophils % 3.4 D Basophils % 1.2 Nucleated RBC % 0 Retic Count PT with INR INR PTT (Actin FS) Sodium 140 Potassium 4.6 Chloride 110 H Carbon Dioxide 25 Anion Gap 6 L BUN 33.1 H Creatinine 1.0 Est GFR (CKD-EPI)AfAm 65.18 Est GFR (CKD-EPI)NonAf 56.24 POC Glucometer Random Glucose 72 L Lactic Acid 0.8 Calcium 9.2 Phosphorus Magnesium Iron TIBC Iron Saturation Unsaturated IBC Ferritin Total Bilirubin 0.4 AST 39 H ALT 18 Alkaline Phosphatase 44 L Total Protein 7.0 Albumin 3.4 Vitamin B12 Serum Folate 03/02/19 03/02/19 03/02/19 06:08 08:41 08:41 WBC 3.8 L RBC 3.06 L Hgb 8.8 L Hct 26.2 L MCV 85.4 MCH 28.9 MCHC 33.8 RDW 14.3 Plt Count 235 MPV 8.5 D Absolute Neuts (auto) 2.3 Neutrophils % 60.9 Lymphocytes % 24.6 Monocytes % 8.7 Eosinophils % 4.3 Basophils % 1.5 Nucleated RBC % 0 Retic Count PT with INR 12.40 INR 1.05 PTT (Actin FS) 28.9 Sodium Potassium Chloride Carbon Dioxide Anion Gap BUN Creatinine Est GFR (CKD-EPI)AfAm Est GFR (CKD-EPI)NonAf POC Glucometer 125 Random Glucose Lactic Acid Calcium Phosphorus Magnesium Iron TIBC Iron Saturation Unsaturated IBC Ferritin Total Bilirubin AST ALT Alkaline Phosphatase Total Protein Albumin Vitamin B12 Serum Folate 03/02/19 03/02/19 03/02/19 08:41 08:41 08:41 WBC RBC Hgb Hct MCV MCH MCHC RDW Plt Count MPV Absolute Neuts (auto) Neutrophils % Lymphocytes % Monocytes % Eosinophils % Basophils % Nucleated RBC % Retic Count 1.77 H PT with INR INR PTT (Actin FS) Sodium 139 Potassium 4.2 Chloride 108 H Carbon Dioxide 24 Anion Gap 7 L BUN 25.8 H Creatinine 1.2 Est GFR (CKD-EPI)AfAm 52.29 Est GFR (CKD-EPI)NonAf 45.11 POC Glucometer Random Glucose 203 H Lactic Acid Calcium 9.2 Phosphorus 4.4 Magnesium 2.2 Iron 42 L TIBC 300 Iron Saturation 14 L Unsaturated IBC 258 Ferritin 37.0 Total Bilirubin 0.4 AST 10 L ALT 16 Alkaline Phosphatase 46 Total Protein 7.0 Albumin 3.4 Vitamin B12 404 Serum Folate 18 H 03/02/19 03/02/19 11:15 16:17 WBC RBC Hgb Hct MCV MCH MCHC RDW Plt Count MPV Absolute Neuts (auto) Neutrophils % Lymphocytes % Monocytes % Eosinophils % Basophils % Nucleated RBC % Retic Count PT with INR INR PTT (Actin FS) Sodium Potassium Chloride Carbon Dioxide Anion Gap BUN Creatinine Est GFR (CKD-EPI)AfAm Est GFR (CKD-EPI)NonAf POC Glucometer 200 170 Random Glucose Lactic Acid Calcium Phosphorus Magnesium Iron TIBC Iron Saturation Unsaturated IBC Ferritin Total Bilirubin AST ALT Alkaline Phosphatase Total Protein Albumin Vitamin B12 Serum Folate Current Medications Generic Name Dose Route Start Last Admin Trade Name Freq PRN Reason Stop Dose Admin Acetaminophen 650 mg 03/02/19 03:32 03/02/19 04:00 Tylenol - PO 650 mg Q6H PRN Administration Fever Or Pain Aspirin 81 mg 03/02/19 10:00 03/02/19 09:24 Ecotrin - PO 81 mg DAILY DAVID Administration Carvedilol 6.25 mg 03/02/19 06:00 03/02/19 13:08 Coreg - PO 6.25 mg TID DAVID Administration Hydrochlorothiazide 12.5 mg 03/02/19 10:00 03/02/19 09:35 Hctz - PO 12.5 mg DAILY DAVID Administration Vancomycin HCl 1,000 mg in 250 mls @ 166.667 mls/hr 03/03/19 02:00 Vancomycin (Pre-Docked) IVPB 03/03/19 03:29 ONCE ONE Protocol Ampicillin Sodium/Sulbactam 100 mls @ 200 mls/hr 03/02/19 15:15 03/02/19 17: 32 Sodium 3 gm/ Sodium Chloride IVPB Not Given Q8H-IV DAVID Insulin Aspart 1 vial 03/02/19 07:00 03/02/19 16:19 Novolog Vial Sliding Scale - SQ Not Given ACHS [facility] Protocol Home Medications Medication Instructions Recorded Glipizide 10 mg PO TID 04/27/18 Hydrochlorothiazide [Hctz -] 12.5 mg PO DAILY 04/27/18 Metformin HCl [Glucophage] 500 mg PO TID 04/27/18 Tramadol HCl 50 mg PO QID 03/01/19 Aspirin [Aspirin EC] 81 mg PO DAILY 03/02/19 Carvedilol 3.125 mg PO BID 03/02/19 Carvedilol 3.125 mg PO TID 03/02/19 Silver Sulfadiazine 1% Top Cr 1 applic TP BID 03/02/19 [Silvadene -] metFORMIN XR [Glucophage Xr -] 500 mg PO TID 03/02/19 ASSESSMENT AND PLAN: 73 year old male with DM 2, HTN, OM s/p partial amputation L 5th toe, Chronic L heel wound, parox SVT, admitted due to worsening erythema/tenderness L foot ulcer and weakness/decreased mobility due pain LLE. 1. Infected LLE foot ulcer with associated cellulitis Received IV Vanc/Zosyn Wound Cx sent Afebrile, Hemodynamically Stable. MRI LLE to exclude OM Podiatry/ID consulted. 2. HTN - continue Coreg, HCTZ 3. Iron Deficiency Anemia No evidence of acute blood loss. Iron Sat 14% Further work-up as per GI. 4. DM 2 - Metformin, Glipizide held. Maintain on Novolog sliding scale. Refusing SQ insulin, insisting that she will sneak her oral anti- hyperglycemics. Advised strongly against doing that. DVT Px - SCDs pending negative FOBT.
[2019-03-03] MEDS ORDERED: VANCOMYCIN 1 GRAM (PRE-DOCKED) 1,000 MG/250 ML BAG IVPB ONE (02:00)
[2019-03-03] MEDS: AMPICILLIN NA/SULBACTAM NA 3 GM in SODIUM CHLORIDE 100 ML IVPB SCH ×3 (02:35→17:49)
[2019-03-03] MEDS: ACETAMINOPHEN 325 MG TABLET (FP) PO PRN ×2 (04:15→20:22)
[2019-03-03] MEDS: CARVEDILOL 6.25 MG TABLET (FP) PO SCH ×3 (05:27→21:37)
[2019-03-03] MEDS: INSULIN SLIDING SCALE (NOVOLOG) 1 VIAL SQ SCH ×5 (06:00→21:39)
[2019-03-03] MEDS ORDERED: traMADol HCL 50 MG TABLET PO SCH (10:00)
[2019-03-03] MEDS ORDERED: PT OWN MED DRAWER 7, Y5N ONE (10:04)
[2019-03-03] MEDS: HYDROCHLOROTHIAZIDE 12.5 MG CAPSULE (FP) PO SCH (10:22)
[2019-03-03] MEDS: ASPIRIN COATED 81 MG TABLET.EC PO SCH (10:22)
--- NOTE | 2019-03-03 13:08 | PN ---
Progress Note, Physician Chief Complaint: Cellulitis, wound left heel. Also complaining about her left leg mobility. History of Present Illness: chronic wound left heel. - Current Medication List Current Medications: Active Medications Acetaminophen (Tylenol -) 650 mg PO Q6H PRN PRN Reason: Fever Or Pain Last Admin: 03/03/19 04:15 Dose: 650 mg Aspirin (Ecotrin -) 81 mg PO DAILY [facility] Last Admin: 03/03/19 10:22 Dose: 81 mg Carvedilol (Coreg -) 6.25 mg PO TID [facility] Last Admin: 03/03/19 05:27 Dose: 6.25 mg Hydrochlorothiazide (Hctz -) 12.5 mg PO DAILY [facility] Last Admin: 03/03/19 10:22 Dose: 12.5 mg Ampicillin Sodium/Sulbactam (Sodium 3 gm/ Sodium Chloride) 100 mls @ 200 mls/ hr IVPB Q8H-IV [facility] Last Admin: 03/03/19 10:22 Dose: 200 mls/hr Insulin Aspart (Novolog Vial Sliding Scale -) 1 vial SQ ACHS [facility]; Protocol Last Admin: 03/03/19 11:18 Dose: Not Given Tramadol HCl (Ultram -) 50 mg PO QID [facility] Last Admin: 03/03/19 10:19 Dose: 50 mg - Objective Vital Signs: Vital Signs Temperature 98.1 F 03/03/19 07:44 Pulse Rate 66 03/03/19 07:44 Respiratory Rate 16 03/03/19 07:44 Blood Pressure 154/90 03/03/19 07:44 O2 Sat by Pulse Oximetry (%) 100 03/03/19 09:00 Extremities: Yes: Other (+improving cellulitis, +granulating heel wound left, - mal odor, -drainage, mri negative for om) Labs: CBC, BMP 03/02/19 08:41 03/02/19 08:41 INR, PTT INR 1.05 (0.83-1.09) 03/02/19 08:41 Assessment/Plan cellulitis grade 1-2 wound DC Betadine dressing left heel. Change to Santyl dressing daily. IVABX as per ID. Will follow. Consult ortho for left leg complaint.
--- NOTE | 2019-03-03 13:39 | PN.GI ---
GI Progress Note Subjective: patient refused blood drawing today, explained ne - Objective Vital Signs: Vital Signs Temperature 98.1 F 03/03/19 07:44 Pulse Rate 66 03/03/19 07:44 Respiratory Rate 16 03/03/19 07:44 Blood Pressure 154/90 03/03/19 07:44 O2 Sat by Pulse Oximetry (%) 100 03/03/19 09:00 Constitutional: Obese Eyes: Yes: Conjunctiva Clear HENT: Yes: Atraumatic Cardiovascular: Yes: Regular Rate and Rhythm Respiratory: Yes: CTA Bilaterally ...Palpate: Yes: Soft. No: Firm/Rigid, Guarding, Hepatomegaly, Mass, Pulsatile Mass, Splenomegaly Labs: CBC, BMP 03/02/19 08:41 03/02/19 08:41 INR, PTT INR 1.05 (0.83-1.09) 03/02/19 08:41 Assessment/Plan A> liver enzymes normalized patient refused hep rpofile and abdominal ultrasound
--- NOTE | 2019-03-03 13:40 | PN ---
Progress Note, Physician History of Present Illness: Pt c/o pain in LLE relieved by Tramadol. Denies abd pain/n/v, SOB, CP. - Current Medication List Current Medications: Active Medications Acetaminophen (Tylenol -) 650 mg PO Q6H PRN PRN Reason: Fever Or Pain Last Admin: 03/03/19 04:15 Dose: 650 mg Aspirin (Ecotrin -) 81 mg PO DAILY [facility] Last Admin: 03/03/19 10:22 Dose: 81 mg Carvedilol (Coreg -) 6.25 mg PO TID [facility] Last Admin: 03/03/19 05:27 Dose: 6.25 mg Collagenase (Santyl -) 1 applic TP DAILY [facility]; Protocol Hydrochlorothiazide (Hctz -) 12.5 mg PO DAILY [facility] Last Admin: 03/03/19 10:22 Dose: 12.5 mg Ampicillin Sodium/Sulbactam (Sodium 3 gm/ Sodium Chloride) 100 mls @ 200 mls/ hr IVPB Q8H-IV [facility] Last Admin: 03/03/19 10:22 Dose: 200 mls/hr Insulin Aspart (Novolog Vial Sliding Scale -) 1 vial SQ ACHS [facility]; Protocol Last Admin: 03/03/19 11:18 Dose: Not Given Tramadol HCl (Ultram -) 50 mg PO QID [facility] Last Admin: 03/03/19 10:19 Dose: 50 mg - Objective Vital Signs: Vital Signs Temperature 98.1 F 03/03/19 07:44 Pulse Rate 66 03/03/19 07:44 Respiratory Rate 16 03/03/19 07:44 Blood Pressure 154/90 03/03/19 07:44 O2 Sat by Pulse Oximetry (%) 100 03/03/19 09:00 Constitutional: Yes: No Distress Cardiovascular: Yes: Regular Rate and Rhythm Respiratory: Yes: Regular Gastrointestinal: Yes: Normal Bowel Sounds, Soft, Abdomen, Obese Extremities: Yes: Erythema (LLE erythema/mild warmth/tenderness, Lt heel ulcer clean without purulence) Wound/Incision: Yes: Open to air Neurological: Yes: Alert Labs: CBC, BMP 03/02/19 08:41 03/02/19 08:41 INR, PTT INR 1.05 (0.83-1.09) 03/02/19 08:41 Microbiology 03/02/19 06:00 Ulcer Gram Stain - Final 03/02/19 06:00 Ulcer Wound Culture - Preliminary Staphylococcus Coagulase Neg Staphylococcus Coagulase Neg#2 03/01/19 19:47 Blood - Peripheral Venous Blood Culture - Preliminary NO GROWTH OBTAINED AFTER 24 HOURS, INCUBATION TO CONTINUE FOR 4 DAYS. 03/01/19 19:47 Blood - Peripheral Venous Blood Culture - Preliminary NO GROWTH OBTAINED AFTER 24 HOURS, INCUBATION TO CONTINUE FOR 4 DAYS. - ....Imaging MRI: Report Reviewed Problem List - Problems (1) Anemia Code(s): D64.9 - ANEMIA, UNSPECIFIED (2) Cellulitis Code(s): L03.90 - CELLULITIS, UNSPECIFIED Qualifiers: Site of cellulitis: extremity Site of cellulitis of extremity: lower extremity Laterality: left Qualified Code(s): L03.116 - Cellulitis of left lower limb (3) Anxiety associated with depression Code(s): F41.8 - OTHER SPECIFIED ANXIETY DISORDERS (4) Diabetic foot ulcer Code(s): E11.621 - TYPE 2 DIABETES MELLITUS WITH FOOT ULCER; L97.509 - NON- PRESSURE CHRONIC ULCER OTH PRT UNSP FOOT W UNSP SEVERITY Qualifiers: Diabetic foot ulcer location: unspecified part of foot Diabetes mellitus type: other specified (including RAMONA) Laterality: left Non-pressure ulcer stage: unspecified non-pressure ulcer stage Qualified Code(s): E13.621 - Other specified diabetes mellitus with foot ulcer; L97.529 - Non-pressure chronic ulcer of other part of left foot with unspecified severity (5) Morbid obesity with BMI of 40.0-44.9, adult Code(s): Z68.41 - BODY MASS INDEX (BMI) 40.0-44.9, ADULT (6) Chronic venous insufficiency Code(s): I87.2 - VENOUS INSUFFICIENCY (CHRONIC) (PERIPHERAL) (7) Type II diabetes mellitus, uncontrolled Code(s): E11.65 - TYPE 2 DIABETES MELLITUS WITH HYPERGLYCEMIA Assessment/Plan LLE cellulitis Lt heel diabetic foot ulcer -- MRI results noted, no evidence of Osteomyelitis -- Continue Unasyn for now, will consider switch to PO as improves
[2019-03-03] MEDS: COLLAGENASE CLOSTRIDIUM HIST. 30 GRAMS TUBE TP SCH (15:34)
--- NOTE | 2019-03-03 17:10 | PN ---
Teaching Attending Note Name of Resident: Juan Manuel Norris ATTENDING PHYSICIAN STATEMENT I saw and evaluated the patient. I reviewed the resident's note and discussed the case with the resident. I agree with the resident's findings and plan as documented. SUBJECTIVE: Complains of pain/weakness LLE with associated erythema and tenderness of foot/ankle and L groin/thigh. Refusing further labwork OBJECTIVE: Afebrile, Hemodynamicaly stable Last Vital Signs Temp Pulse Resp BP Pulse Ox 98.6 F 70 22 H 148/68 100 03/03/19 15:19 03/03/19 15:19 03/03/19 15:19 03/03/19 15:19 03/03/19 09:00 Lungs - clear to auscultation Heart - S1, S2, RRR Abdomen - High BMI. Soft, non-tender. Bowel Sounds normal. Extremities - Bilateral LE edema, chronic venous stasis with dermatitis, ulcer lateral aspect L ankle, no discharge or collection. Laboratory Results - last 24 hr 03/02/19 03/02/19 03/03/19 08:41 22:05 05:25 POC Glucometer 196 212 Transferrin 233 03/03/19 11:17 POC Glucometer 206 Transferrin Current Medications Generic Name Dose Route Start Last Admin Trade Name Freq PRN Reason Stop Dose Admin Acetaminophen 650 mg 03/02/19 03:32 03/03/19 04:15 Tylenol - PO 650 mg Q6H PRN Administration Fever Or Pain Aspirin 81 mg 03/02/19 10:00 03/03/19 10:22 Ecotrin - PO 81 mg DAILY [facility] Administration Carvedilol 6.25 mg 03/02/19 06:00 03/03/19 13:37 Coreg - PO 6.25 mg TID [facility] Administration Collagenase 1 applic 03/03/19 13:15 03/03/19 15:34 Santyl - TP 1 applic DAILY [facility] Administration Protocol Hydrochlorothiazide 12.5 mg 03/02/19 10:00 03/03/19 10:22 Hctz - PO 12.5 mg DAILY [facility] Administration Ampicillin Sodium/Sulbactam 100 mls @ 200 mls/hr 03/02/19 15:15 03/03/19 10: 22 Sodium 3 gm/ Sodium Chloride IVPB 200 mls/hr Q8H-IV [facility] Administration Insulin Aspart 1 vial 03/02/19 07:00 03/03/19 11:18 Novolog Vial Sliding Scale - SQ Not Given ACHS [facility] Protocol Tramadol HCl 50 mg 03/03/19 13:43 Ultram - PO QID PRN PAIN LEVEL 1-5 Home Medications Medication Instructions Recorded Glipizide 10 mg PO TID 04/27/18 Hydrochlorothiazide [Hctz -] 12.5 mg PO DAILY 04/27/18 Tramadol HCl 50 mg PO QID 03/01/19 Aspirin [Aspirin EC] 81 mg PO DAILY 03/02/19 Carvedilol 3.125 mg PO BID 03/02/19 Silver Sulfadiazine 1% Top Cr 1 applic TP BID 03/02/19 [Silvadene -] metFORMIN XR [Glucophage Xr -] 500 mg PO TID 03/02/19 ASSESSMENT AND PLAN: 73 year old female with DM 2, HTN, 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 1. Infected LLE foot ulcer with associated cellulitis Wound Cx - normal neptali MRI LLE - no OM, soft tissue swelling. Afebrile, Hemodynamically Stable. Podiatry/ID following. Continue IV Unasyn. 2. HTN - continue Coreg, HCTZ 3. Iron Deficiency Anemia No evidence of acute blood loss. Iron Sat 14% Further work-up as per GI. FOBT requested. 4. DM 2 - Metformin, Glipizide held. Maintain on Novolog sliding scale. Refusing SQ insulin. 5. LLE pain, groin/hip discomfort. Xray and Ortho consult. DVT Px - Heparin SQ (no evidence of acute blood loss)
--- NOTE | 2019-03-03 17:19 | PN ---
Physical Exam: SUBJECTIVE: Patient seen and examined. No acute events overnight. Patient refusing morning labs and insulin still despite having been explained the necessity of both. Patient now stating that her leg pain has only been going on for 1 week. OBJECTIVE: Vital Signs Period Temp Pulse Resp BP Sys/Keenan Pulse Ox Last 24 Hr 98.1 F-98.6 F 61-104 16-22 120-154/51-90 100-100 GENERAL: The patient is awake, alert, and fully oriented, in no acute distress. HEAD: Normal with no signs of trauma. EYES: EOMI, no ptosis ENT: Moist mucous membranes NECK: trachea midline, supple LUNGS: Breath sounds equal, clear to auscultation bilaterally, no wheezes, no crackles, no accessory muscle use. HEART: Regular rate and rhythm, S1, S2 without murmur, rub or gallop. ABDOMEN: Soft, nontender, nondistended, normoactive bowel sounds, no guarding EXTREMITIES: 2+ pulses, warm, well-perfused, bilateral edema of lower extremities. 5/5 strength RLE. 2/5 strength LLE, able to wiggle toes, mild flexion at level on knee, mild pain on palpation of LLE NEUROLOGICAL: Normal speech, gait stable with a rolling walker. sensation intact throughout SKIN: Warm, dry, normal turgor. Stage 1 ulcer on left heel, no foul odor or drainage noted. 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 erythema of left foot Laboratory Results - last 24 hr 03/02/19 03/02/19 03/03/19 08:41 22:05 05:25 POC Glucometer 196 212 Transferrin 233 03/03/19 11:17 POC Glucometer 206 Transferrin Active Medications Generic Name Dose Route Start Last Admin Trade Name Freq PRN Reason Stop Dose Admin Acetaminophen 650 mg 03/02/19 03:32 03/03/19 04:15 Tylenol - PO 650 mg Q6H PRN Administration Fever Or Pain Aspirin 81 mg 03/02/19 10:00 03/03/19 10:22 Ecotrin - PO 81 mg DAILY [facility] Administration Carvedilol 6.25 mg 03/02/19 06:00 03/03/19 13:37 Coreg - PO 6.25 mg TID [facility] Administration Collagenase 1 applic 03/03/19 13:15 03/03/19 15:34 Santyl - TP 1 applic DAILY [facility] Administration Protocol Hydrochlorothiazide 12.5 mg 03/02/19 10:00 03/03/19 10:22 Hctz - PO 12.5 mg DAILY [facility] Administration Ampicillin Sodium/Sulbactam 100 mls @ 200 mls/hr 03/02/19 15:15 03/03/19 10: 22 Sodium 3 gm/ Sodium Chloride IVPB 200 mls/hr Q8H-IV [facility] Administration Insulin Aspart 1 vial 03/02/19 07:00 03/03/19 11:18 Novolog Vial Sliding Scale - SQ Not Given ACHS [facility] Protocol Tramadol HCl 50 mg 03/03/19 13:43 Ultram - PO QID PRN PAIN LEVEL 1-5 ASSESSMENT/PLAN: 73 y/o/f with PMHx of NIDDM, HTN, osteomyelitis, chronic left heel wound, and SVT who presented to [facility] at the behest of her [employer] Tender due to a left lower extremity heel wound. #Left Lower Extremity Ulcer - Received Vancomycin and Zosyn in ED - Started on Unasyn as per ID - Continue Unasyn while inpatient. Can be discharged with Augmentin 875mg BID for 1 week. - ID Consulted (Dr. Lange) - Blood Cultures negative to date - Wound culture growing normal skin neptali - MRI without evidence of osteomyelitis, abscess. Extensive soft tissue swelling surround the ankle noted, predominantly the medial dorsal aspect of the ankle compatible with extensive cellulitis. - Podiatry consulted (Dr. Clarke) #Left Leg pain and weakness - Hip and lumbar/sacral spine ordered - Ortho consulted (Dr. Villalpando) - Tramadol home medication for pain - able to walk 50ft with PT with rolling walker #Anemia 2/2 possible GI source - GI consulted (Dr. Longoria) - patient refusing colonoscopy, EGD as per GI - patient refused abdomen U/S and morning labs including hep profile - Iron low at 42. Normal TIBC, Ferritin, transferrin low. - recommend GI outpatient follow up - Stool for occult blood ordered #NIDDM - ISS - BGMs - patient refusing to take Insulin at this time #HTN - Patient states she no longer takes Losartan - C/w Coreg and HCTZ #FEN - No standing fluids - Monitor and replete bobby as needed - Diabetic Diet #DVT ppx - SCDs - Heparin #Disposition - pending Orthopedics evaluation, patient can be discharge with PO meds Visit type - Emergency Visit Emergency Visit: Yes ED Registration Date: 03/01/19 Care time: The patient presented to the Emergency Department on the above date and was hospitalized for further evaluation of their emergent condition. - New Patient This patient is new to me today: No - Critical Care Critical Care patient: No ATTENDING PHYSICIAN STATEMENT I saw and evaluated the patient. I reviewed the resident's note and discussed the case with the resident. I agree with the resident's findings and plan as documented. SUBJECTIVE: OBJECTIVE: ASSESSMENT AND PLAN:
[2019-03-03] MEDS: traMADol HCL 50 MG TABLET PO PRN ×2 (18:00→23:28)
--- NOTE | 2019-03-03 20:51 | PN ---
Progress Note (short form) - Note Progress Note: Lumbar, hip films reviewed. Advanced spinal degenerative change. No hip arthritis. Will examine pt fully in AM.
[2019-03-03] MEDS ORDERED: INSULIN (NOVOLOG) ASPART 100 UNITS/ML 10ML VIAL ONE (21:18)
[2019-03-03] MEDS: HEPARIN NA (PORCINE) 5,000 UNITS/ML 1ML VIAL SQ SCH (21:37)
[2019-03-04] MEDS: AMPICILLIN NA/SULBACTAM NA 3 GM in SODIUM CHLORIDE 100 ML IVPB SCH ×3 (01:33→17:10)
[2019-03-04] MEDS: traMADol HCL 50 MG TABLET PO PRN ×3 (04:31→19:46)
[2019-03-04] MEDS: INSULIN SLIDING SCALE (NOVOLOG) 1 VIAL SQ SCH ×4 (06:27→21:41)
[2019-03-04] MEDS: CARVEDILOL 6.25 MG TABLET (FP) PO SCH ×3 (06:27→21:41)
[2019-03-04] MEDS: HEPARIN NA (PORCINE) 5,000 UNITS/ML 1ML VIAL SQ SCH ×3 (06:27→21:41)
[2019-03-04 09:42] LABS: HEMATOCRIT 25.3 % (32.4-45.2); HEMOGLOBIN 8.6 GM/dL (10.7-15.3); MCH 29.1 pg (25.7-33.7); MCHC 33.9 g/dl (32.0-36.0); MEAN CELL VOLUME 85.7 fl (80-96); MEAN PLT VOLUME 8.5 fl (7.5-11.1); PLATELET COUNT 220 K/MM3 (134-434); RBC 2.95 M/mm3 (3.60-5.2); RDW 14.2 % (11.6-15.6); WHITE BLOOD COUNT 3.8 K/mm3 (4.0-10.0)
[2019-03-04] MEDS ORDERED: PT OWN MED DRAWER 7, Y5N ONE ×2 (10:14→17:06)
[2019-03-04] MEDS: HYDROCHLOROTHIAZIDE 12.5 MG CAPSULE (FP) PO SCH (10:16)
[2019-03-04] MEDS: ASPIRIN COATED 81 MG TABLET.EC PO SCH (10:16)
[2019-03-04 10:19] LABS: ALBUMIN 3.2 g/dl (3.4-5.0); BILIRUBIN,TOTAL 0.3 mg/dL (0.2-1); BLOOD UREA NITROGEN 30.6 mg/dL (7-18); CALCIUM 8.9 mg/dL (8.5-10.1); CREATININE 1.3 mg/dL (0.55-1.3); POTASSIUM 4.4 mmol/L (3.5-5.1); TOT PROT 6.7 g/dl (6.4-8.2)
[2019-03-04] MEDS: COLLAGENASE CLOSTRIDIUM HIST. 30 GRAMS TUBE TP SCH (10:50)
--- NOTE | 2019-03-04 11:58 | CON.ORTH ---
Consult Consult Specialty:: orthopedic surgery Reason for Consultation:: left hip and lower extremity pain - History of Present Illness History of Present Illness: 73y F with LLE pain pt states pain going on about 10-14 days no injury patient points to the groin area pt was admitted for cellulitis of her ankle pain worse with trying to walk improved with rest no numbness or tingling describes occasional shooting pain down the leg to the foot - Past Medical History [employer] AS[employer]: Yes: Peripheral Neuropathy Cardio/Vascular: Yes: HTN, Other (PSVT) Endocrine: Yes: Diabetes Mellitus - Past Surgical History Past Surgical History: Yes: Appendectomy Additional Surgical History: Left 5th toe amputation - Alcohol/Substance Use Hx Alcohol Use: No History of Substance Use: reports: None - Smoking History Smoking history: Never smoked Have you smoked in the past 12 months: No Aproximately how many cigarettes per day: 0 - Social History Usual Living Arrangement: Alone ADL: Independent History of Recent Travel: No Home Medications - Allergies Allergies/Adverse Reactions: Allergies Allergy/AdvReac Type Severity Reaction Status Date / Time No Known Allergies Allergy Verified 03/01/19 14:06 - Home Medications Home Medications: Ambulatory Orders Glipizide 10 mg PO TID 04/27/18 Hydrochlorothiazide [Hctz -] 12.5 mg PO DAILY 04/27/18 Tramadol HCl 50 mg PO QID 03/01/19 Aspirin [Aspirin EC] 81 mg PO DAILY 03/02/19 Carvedilol 3.125 mg PO BID 03/02/19 Silver Sulfadiazine 1% Top Cr [Silvadene -] 1 applic TP BID 03/02/19 metFORMIN XR [Glucophage Xr -] 500 mg PO TID 03/02/19 Physical Exam for Ortho Vital Signs: Vital Signs Temperature 97.9 F 03/04/19 07:51 Pulse Rate 56 L 03/04/19 07:51 Respiratory Rate 16 03/04/19 07:51 Blood Pressure 132/62 03/04/19 07:51 O2 Sat by Pulse Oximetry (%) 100 03/03/19 21:00 Constitutional: Yes: No Distress, Calm, Obese Cardiovascular: Yes: Regular Rate and Rhythm Respiratory: Yes: Regular Extremities: Yes: Other (Exam somewhat limited by body habitus. Unable to palpate to greater trochanter. Pain with hip flex/ext/IR/ER. No pain with knee ROM. Active knee flex/ext, ankle flex/ext toe flex/ext intact. Sensation intact to LT. Cr<2 over foot.) Labs: CBC, BMP 03/04/19 09:00 03/04/19 09:00 INR, PTT INR 1.05 (0.83-1.09) 03/02/19 08:41 Imaging - Results X-ray: Report Reviewed, Image Reviewed (L spine films show moderate-severe degenerative changes. Hip films unremarkable.) Problem List - Problems (1) Pain in left hip Assessment/Plan: I reviewed today's findings with Amber advised her exam is most c/w for hip pain rather than radicular pain for her lower back, though this does remain in the differential will obtain MRI to r/o stress fracture of the hip, also could have atraumatic injury to the iliopsoas if psoas strain, can work on PT, WBAT stress fracture would require site specific management Code(s): M25.552 - PAIN IN LEFT HIP
[2019-03-04] MEDS: FERROUS SO4 325 MG TABLET (FP) PO SCH ×2 (14:23→21:41)
--- NOTE | 2019-03-04 17:10 | PN ---
Progress Note (short form) - Note Progress Note: SUBJECTIVE: Complains of pain/weakness LLE with associated L groin/thigh pain. OBJECTIVE: Afebrile, Hemodynamically stable. Last Vital Signs Temp Pulse Resp BP Pulse Ox 82.6 F L 66 20 148/62 100 03/04/19 15:36 03/04/19 15:36 03/04/19 15:36 03/04/19 15:36 03/04/19 09:00 Lungs - clear to auscultation Heart - S1, S2, RRR Abdomen - High BMI. Soft, non-tender. Bowel Sounds normal. Extremities - Bilateral LE edema, chronic venous stasis with dermatitis, ulcer lateral aspect L ankle, no discharge or collection, clean margins. Laboratory Results - last 24 hr 03/03/19 03/03/19 03/04/19 17:33 21:36 09:00 WBC 3.8 L RBC 2.95 L Hgb 8.6 L Hct 25.3 L MCV 85.7 MCH 29.1 MCHC 33.9 RDW 14.2 Plt Count 220 MPV 8.5 Sodium Potassium Chloride Carbon Dioxide Anion Gap BUN Creatinine Est GFR (CKD-EPI)AfAm Est GFR (CKD-EPI)NonAf POC Glucometer 218 253 Random Glucose Calcium Total Bilirubin AST ALT Alkaline Phosphatase Total Protein Albumin 03/04/19 03/04/19 03/04/19 09:00 11:26 16:27 WBC RBC Hgb Hct MCV MCH MCHC RDW Plt Count MPV Sodium 138 Potassium 4.4 Chloride 107 Carbon Dioxide 27 Anion Gap 5 L BUN 30.6 H Creatinine 1.3 Est GFR (CKD-EPI)AfAm 47.46 Est GFR (CKD-EPI)NonAf 40.95 POC Glucometer 275 212 Random Glucose 309 H Calcium 8.9 Total Bilirubin 0.3 AST 10 L ALT 15 Alkaline Phosphatase 47 Total Protein 6.7 Albumin 3.2 L Current Medications Generic Name Dose Route Start Last Admin Trade Name Freq PRN Reason Stop Dose Admin Acetaminophen 650 mg 03/02/19 03:32 03/03/19 20:22 Tylenol - PO 650 mg Q6H PRN Administration Fever Or Pain Aspirin 81 mg 03/02/19 10:00 03/04/19 10:16 Ecotrin - PO 81 mg DAILY [facility] Administration Carvedilol 6.25 mg 03/02/19 06:00 03/04/19 13:25 Coreg - PO 6.25 mg TID [facility] Administration Collagenase 1 applic 03/03/19 13:15 03/04/19 10:50 Santyl - TP 1 applic DAILY [facility] Administration Protocol Docusate Sodium 100 mg 03/04/19 22:00 Colace - PO BID [facility] Ferrous Sulfate 325 mg 03/04/19 13:45 03/04/19 14:23 Feosol - PO 325 mg BID [facility] Administration Heparin Sodium (Porcine) 5,000 unit 03/03/19 22:00 03/04/19 13:25 Heparin - SQ 5,000 unit TID [facility] Administration Hydrochlorothiazide 12.5 mg 03/02/19 10:00 03/04/19 10:16 Hctz - PO 12.5 mg DAILY [facility] Administration Ampicillin Sodium/Sulbactam 100 mls @ 200 mls/hr 03/02/19 15:15 03/04/19 10: 15 Sodium 3 gm/ Sodium Chloride IVPB 200 mls/hr Q8H-IV [facility] Administration Insulin Aspart 1 vial 03/02/19 07:00 03/04/19 16:28 Novolog Vial Sliding Scale - SQ Not Given ACHS [facility] Protocol Tramadol HCl 50 mg 03/03/19 13:43 03/04/19 14:21 Ultram - PO 50 mg QID PRN Administration PAIN LEVEL 1-5 Home Medications Medication Instructions Recorded Glipizide 10 mg PO TID 04/27/18 Hydrochlorothiazide [Hctz -] 12.5 mg PO DAILY 04/27/18 Tramadol HCl 50 mg PO QID 03/01/19 Aspirin [Aspirin EC] 81 mg PO DAILY 03/02/19 Carvedilol 3.125 mg PO BID 03/02/19 Silver Sulfadiazine 1% Top Cr 1 applic TP BID 03/02/19 [Silvadene -] metFORMIN XR [Glucophage Xr -] 500 mg PO TID 03/02/19 ASSESSMENT AND PLAN: 73 year old female with DM 2, HTN, 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 1. Infected LLE foot ulcer with associated cellulitis - much improved. Wound Cx - normal neptali (coag neg staph) MRI LLE - no OM, soft tissue swelling. Afebrile, Hemodynamically Stable. Continue IV Unasyn. Podiatry/ID following. 2. HTN - continue Coreg, HCTZ 3. Iron Deficiency Anemia No evidence of acute blood loss. Iron Sat 14% Further work-up as per GI. FOBT requested. Iron supplementation 4. DM 2 - Metformin, Glipizide held. Maintain on Novolog sliding scale. Refusing SQ insulin. 5. LLE pain, groin/hip discomfort. Xray hip/LS Spine - DJD. Ortho evaluated and requested MRI to exclude stress fracture. DVT Px - Heparin SQ (no evidence of acute blood loss) Dispo - PT eval, possible SNF placement. Visit type - Emergency Visit Emergency Visit: Yes ED Registration Date: 03/01/19 Care time: The patient presented to the Emergency Department on the above date and was hospitalized for further evaluation of their emergent condition. - New Patient This patient is new to me today: No - Critical Care Critical Care patient: No - Discharge Referral Referred to [facility] No
--- NOTE | 2019-03-04 19:19 | PN ---
Progress Note, Physician History of Present Illness: Pt c/o Lt hip pain. Evaluated by Orthopedics, awaiting further imaging. No other new complaints. Tolerating antibiotics. - Current Medication List Current Medications: Active Medications Acetaminophen (Tylenol -) 650 mg PO Q6H PRN PRN Reason: Fever Or Pain Last Admin: 03/03/19 20:22 Dose: 650 mg Aspirin (Ecotrin -) 81 mg PO DAILY [facility] Last Admin: 03/04/19 10:16 Dose: 81 mg Carvedilol (Coreg -) 6.25 mg PO TID [facility] Last Admin: 03/04/19 13:25 Dose: 6.25 mg Collagenase (Santyl -) 1 applic TP DAILY [facility]; Protocol Last Admin: 03/04/19 10:50 Dose: 1 applic Docusate Sodium (Colace -) 100 mg PO BID [facility] Ferrous Sulfate (Feosol -) 325 mg PO BID [facility] Last Admin: 03/04/19 14:23 Dose: 325 mg Heparin Sodium (Porcine) (Heparin -) 5,000 unit SQ TID [facility] Last Admin: 03/04/19 13:25 Dose: 5,000 unit Hydrochlorothiazide (Hctz -) 12.5 mg PO DAILY [facility] Last Admin: 03/04/19 10:16 Dose: 12.5 mg Ampicillin Sodium/Sulbactam (Sodium 3 gm/ Sodium Chloride) 100 mls @ 200 mls/ hr IVPB Q8H-IV [facility] Last Admin: 03/04/19 17:10 Dose: 200 mls/hr Insulin Aspart (Novolog Vial Sliding Scale -) 1 vial SQ ACHS [facility]; Protocol Last Admin: 03/04/19 16:28 Dose: Not Given Tramadol HCl (Ultram -) 50 mg PO QID PRN PRN Reason: PAIN LEVEL 1-5 Last Admin: 03/04/19 14:21 Dose: 50 mg - Objective Vital Signs: Vital Signs Temperature 82.6 F L 03/04/19 15:36 Pulse Rate 66 03/04/19 15:36 Respiratory Rate 03/04/19 15:36 Blood Pressure 148/62 03/04/19 15:36 O2 Sat by Pulse Oximetry (%) 100 03/04/19 09:00 Constitutional: Yes: No Distress, Calm Cardiovascular: Yes: Regular Rate and Rhythm Respiratory: Yes: Regular Gastrointestinal: Yes: Normal Bowel Sounds, Soft, Abdomen, Obese Genitourinary: Yes: WNL Musculoskeletal: Yes: Other (Lt hip pain with limited ROM) Extremities: Yes: Erythema (LLE erythema/tenderness, +foot ulcer clean) Neurological: Yes: Alert Labs: CBC, BMP 03/04/19 09:00 03/04/19 09:00 INR, PTT INR 1.05 (0.83-1.09) 03/02/19 08:41 Microbiology 03/02/19 06:00 Ulcer Gram Stain - Final 03/02/19 06:00 Ulcer Wound Culture - Final Staphylococcus Coagulase Neg Staphylococcus Coagulase Neg#2 03/01/19 19:47 Blood - Peripheral Venous Blood Culture - Preliminary NO GROWTH OBTAINED AFTER 48 HOURS, INCUBATION TO CONTINUE FOR 3 DAYS. 03/01/19 19:47 Blood - Peripheral Venous Blood Culture - Preliminary NO GROWTH OBTAINED AFTER 48 HOURS, INCUBATION TO CONTINUE FOR 3 DAYS. - ....Imaging X-ray: Report Reviewed MRI: Report Reviewed Problem List - Problems (1) Anemia Code(s): D64.9 - ANEMIA, UNSPECIFIED (2) Cellulitis Code(s): L03.90 - CELLULITIS, UNSPECIFIED Qualifiers: Site of cellulitis: extremity Site of cellulitis of extremity: lower extremity Laterality: left Qualified Code(s): L03.116 - Cellulitis of left lower limb (3) Anxiety associated with depression Code(s): F41.8 - OTHER SPECIFIED ANXIETY DISORDERS (4) Diabetic foot ulcer Code(s): E11.621 - TYPE 2 DIABETES MELLITUS WITH FOOT ULCER; L97.509 - NON- PRESSURE CHRONIC ULCER OTH PRT UNSP FOOT W UNSP SEVERITY Qualifiers: Diabetic foot ulcer location: unspecified part of foot Diabetes mellitus type: other specified (including RAMONA) Laterality: left Non-pressure ulcer stage: unspecified non-pressure ulcer stage Qualified Code(s): E13.621 - Other specified diabetes mellitus with foot ulcer; L97.529 - Non-pressure chronic ulcer of other part of left foot with unspecified severity (5) Morbid obesity with BMI of 40.0-44.9, adult Code(s): Z68.41 - BODY MASS INDEX (BMI) 40.0-44.9, ADULT (6) Chronic venous insufficiency Code(s): I87.2 - VENOUS INSUFFICIENCY (CHRONIC) (PERIPHERAL) (7) Type II diabetes mellitus, uncontrolled Code(s): E11.65 - TYPE 2 DIABETES MELLITUS WITH HYPERGLYCEMIA Assessment/Plan LLE cellulitis Lt heel diabetic foot ulcer -- continue Unasyn, slow to improve, continue wound care -- awaiting MRI for c/o Lt hip pain , Xray results noted
[2019-03-04] MEDS ORDERED: INSULIN (NOVOLOG) ASPART 100 UNITS/ML 10ML VIAL ONE (21:23)
[2019-03-04] MEDS: DOCUSATE SODIUM 100 MG CAPSULE (FP) PO SCH (21:41)
[2019-03-04] MEDS: ACETAMINOPHEN 325 MG TABLET (FP) PO PRN (21:43)
[2019-03-05] MEDS: AMPICILLIN NA/SULBACTAM NA 3 GM in SODIUM CHLORIDE 100 ML IVPB SCH ×3 (01:09→17:39)
[2019-03-05] MEDS: traMADol HCL 50 MG TABLET PO PRN ×3 (01:09→19:58)
[2019-03-05] MEDS: INSULIN SLIDING SCALE (NOVOLOG) 1 VIAL SQ SCH ×4 (06:18→21:37)
[2019-03-05] MEDS: HEPARIN NA (PORCINE) 5,000 UNITS/ML 1ML VIAL SQ SCH ×3 (06:20→21:39)
[2019-03-05] MEDS: CARVEDILOL 6.25 MG TABLET (FP) PO SCH ×3 (06:21→21:38)
--- NOTE | 2019-03-05 09:10 | PN ---
Progress Note (short form) - Note Progress Note: Vascular Surgery Pt seen and examined. DRessing changed. Left heel ulcer for some time. S/P left fifth ray amputation in august at the [facility]. Left heel wound is clean. Good granulation. Cont santyl. Pt having issues moving the entire limb. MRI is ordered. Pt needs aggressive PT. Might need rehab. Left foot is warm, and pink. Medical management. Pj Merino DO
[2019-03-05] MEDS: FERROUS SO4 325 MG TABLET (FP) PO SCH ×2 (09:17→21:38)
[2019-03-05] MEDS: DOCUSATE SODIUM 100 MG CAPSULE (FP) PO SCH ×2 (09:17→21:38)
[2019-03-05] MEDS: COLLAGENASE CLOSTRIDIUM HIST. 30 GRAMS TUBE TP SCH (09:17)
[2019-03-05] MEDS: HYDROCHLOROTHIAZIDE 12.5 MG CAPSULE (FP) PO SCH (09:17)
[2019-03-05] MEDS: ASPIRIN COATED 81 MG TABLET.EC PO SCH (09:17)
--- NOTE | 2019-03-05 09:24 | PN ---
Progress Note (short form) - Note Progress Note: FUV left heel. Seen by ortho and vascular. +resolving heel wound left, -drainage, +improved cellulitis granulating wound resolving cellulitis Discussed wound care and personal weight loss for the future. Read and appreciated ortho and vascular note. Continue santyl. Will follow.
--- NOTE | 2019-03-05 13:17 | PN ---
Progress Note, Physician - Current Medication List Current Medications: Active Medications Acetaminophen (Tylenol -) 650 mg PO Q6H PRN PRN Reason: Fever Or Pain Last Admin: 03/04/19 21:43 Dose: 650 mg Aspirin (Ecotrin -) 81 mg PO DAILY [facility] Last Admin: 03/05/19 09:17 Dose: 81 mg Carvedilol (Coreg -) 6.25 mg PO TID [facility] Last Admin: 03/05/19 06:21 Dose: 6.25 mg Collagenase (Santyl -) 1 applic TP DAILY [facility]; Protocol Last Admin: 03/05/19 09:17 Dose: 1 applic Docusate Sodium (Colace -) 100 mg PO BID [facility] Last Admin: 03/05/19 09:17 Dose: 100 mg Ferrous Sulfate (Feosol -) 325 mg PO BID [facility] Last Admin: 03/05/19 09:17 Dose: 325 mg Heparin Sodium (Porcine) (Heparin -) 5,000 unit SQ TID [facility] Last Admin: 03/05/19 06:20 Dose: 5,000 unit Hydrochlorothiazide (Hctz -) 12.5 mg PO DAILY [facility] Last Admin: 03/05/19 09:17 Dose: 12.5 mg Ampicillin Sodium/Sulbactam (Sodium 3 gm/ Sodium Chloride) 100 mls @ 200 mls/ hr IVPB Q8H-IV [facility] Last Admin: 03/05/19 11:29 Dose: 200 mls/hr Insulin Aspart (Novolog Vial Sliding Scale -) 1 vial SQ ACHS [facility]; Protocol Last Admin: 03/05/19 10:47 Dose: Not Given Tramadol HCl (Ultram -) 50 mg PO QID PRN PRN Reason: PAIN LEVEL 1-5 Last Admin: 03/05/19 01:09 Dose: 50 mg - Objective Vital Signs: Vital Signs Temperature 98.6 F 03/05/19 11:00 Pulse Rate 64 03/05/19 11:00 Respiratory Rate 18 03/05/19 11:00 Blood Pressure 152/73 03/05/19 11:00 O2 Sat by Pulse Oximetry (%) 100 03/05/19 09:00 Labs: CBC, BMP 03/04/19 09:00 03/04/19 09:00 INR, PTT INR 1.05 (0.83-1.09) 03/02/19 08:41
--- NOTE | 2019-03-05 19:15 | PN ---
Progress Note (short form) - Note Progress Note: SUBJECTIVE: Complains of ongoing pain/weakness LLE with associated L groin/ thigh pain. Complains of foul smelling urine. No dysuria/fever. OBJECTIVE: Afebrile, Hemodynamically stable. Last Vital Signs Temp Pulse Resp BP Pulse Ox 98.6 F 64 18 152/73 100 03/05/19 11:00 03/05/19 11:00 03/05/19 11:00 03/05/19 11:00 03/05/19 09:00 Lungs - clear to auscultation Heart - S1, S2, RRR Abdomen - High BMI. Soft, non-tender. Bowel Sounds normal. Extremities - Bilateral LE edema, chronic venous stasis with dermatitis, ulcer lateral aspect L ankle, no discharge or collection, clean margins. L 5th toe amputation. Laboratory Results - last 24 hr 03/04/19 03/04/19 16:27 20:26 POC Glucometer 212 Stool Occult Blood Negative Current Medications Generic Name Dose Route Start Last Admin Trade Name Freq PRN Reason Stop Dose Admin Acetaminophen 650 mg 03/02/19 03:32 03/04/19 21:43 Tylenol - PO 650 mg Q6H PRN Administration Fever Or Pain Aspirin 81 mg 03/02/19 10:00 03/05/19 09:17 Ecotrin - PO 81 mg DAILY [facility] Administration Carvedilol 6.25 mg 03/02/19 06:00 03/05/19 06:21 Coreg - PO 6.25 mg TID [facility] Administration Collagenase 1 applic 03/03/19 13:15 03/05/19 09:17 Santyl - TP 1 applic DAILY [facility] Administration Protocol Docusate Sodium 100 mg 03/04/19 22:00 03/05/19 09:17 Colace - PO 100 mg BID [facility] Administration Ferrous Sulfate 325 mg 03/04/19 13:45 03/05/19 09:17 Feosol - PO 325 mg BID [facility] Administration Heparin Sodium (Porcine) 5,000 unit 03/03/19 22:00 03/05/19 06:20 Heparin - SQ 5,000 unit TID [facility] Administration Hydrochlorothiazide 12.5 mg 03/02/19 10:00 03/05/19 09:17 Hctz - PO 12.5 mg DAILY [facility] Administration Ampicillin Sodium/Sulbactam 100 mls @ 200 mls/hr 03/02/19 15:15 03/05/19 11: 29 Sodium 3 gm/ Sodium Chloride IVPB 200 mls/hr Q8H-IV [facility] Administration Insulin Aspart 1 vial 03/02/19 07:00 03/05/19 10:47 Novolog Vial Sliding Scale - SQ Not Given ACHS [facility] Protocol Tramadol HCl 50 mg 03/03/19 13:43 03/05/19 01:09 Ultram - PO 50 mg QID PRN Administration PAIN LEVEL 1-5 Home Medications Medication Instructions Recorded Glipizide 10 mg PO TID 04/27/18 Hydrochlorothiazide [Hctz -] 12.5 mg PO DAILY 04/27/18 Tramadol HCl 50 mg PO QID 03/01/19 Aspirin [Aspirin EC] 81 mg PO DAILY 03/02/19 Carvedilol 3.125 mg PO BID 03/02/19 Silver Sulfadiazine 1% Top Cr 1 applic TP BID 03/02/19 [Silvadene -] metFORMIN XR [Glucophage Xr -] 500 mg PO TID 03/02/19 ASSESSMENT AND PLAN: 73 year old female with DM 2, HTN, 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 1. Infected LLE foot ulcer with associated cellulitis - much improved. Wound Cx - normal neptali (coag neg staph) MRI LLE - no OM, soft tissue swelling. Afebrile, Hemodynamically Stable. Continue IV Unasyn - will discuss with ID re: transition to oral Abx. Podiatry/Wound Care following - no surgical intervention recommended. Santyl dressings. 2. HTN - continue Coreg, HCTZ 3. Iron Deficiency Anemia No evidence of acute blood loss. Iron Sat 14% FOBT negative Further work-up as per GI. Iron supplementation 4. DM 2 - Metformin, Glipizide held. Maintain on Novolog sliding scale. Refusing SQ insulin. 5. LLE pain, groin/hip discomfort. Xray hip/LS Spine - DJD. Ortho evaluated and requested MRI Hip to exclude stress fracture. 6. Possible UTI. Urine Cx pending. On IV Unasyn for soft tissue infection. Will await Urine Cx result before modifying Abx therapy. DVT Px - Heparin SQ (no evidence of acute blood loss) Dispo - PT eval, possible SNF placement. Visit type - Emergency Visit Emergency Visit: Yes ED Registration Date: 03/01/19 Care time: The patient presented to the Emergency Department on the above date and was hospitalized for further evaluation of their emergent condition. - New Patient This patient is new to me today: No - Critical Care Critical Care patient: No - Discharge Referral Referred to [facility] Med [facility].C[facility] No
[2019-03-05] MEDS ORDERED: INSULIN (NOVOLOG) ASPART 100 UNITS/ML 10ML VIAL ONE (21:24)
--- NOTE | 2019-03-05 21:44 | PN ---
Progress Note (short form) - Note Progress Note: Went to see pt this evening but she was down for MRI. Nurse report documents pt was not able to fit within MRI . Will order bone scan as best alternative. Problem List - Problems (1) Pain in left hip Code(s): M25.552 - PAIN IN LEFT HIP
[2019-03-06] MEDS: ACETAMINOPHEN 325 MG TABLET (FP) PO PRN ×3 (00:40→16:32)
[2019-03-06] MEDS: AMPICILLIN NA/SULBACTAM NA 3 GM in SODIUM CHLORIDE 100 ML IVPB SCH ×2 (02:08→09:49)
[2019-03-06] MEDS: traMADol HCL 50 MG TABLET PO PRN ×3 (04:57→13:08)
[2019-03-06] MEDS: HEPARIN NA (PORCINE) 5,000 UNITS/ML 1ML VIAL SQ SCH ×3 (06:10→21:06)
[2019-03-06] MEDS: CARVEDILOL 6.25 MG TABLET (FP) PO SCH ×3 (06:10→21:05)
[2019-03-06] MEDS: INSULIN SLIDING SCALE (NOVOLOG) 1 VIAL SQ SCH ×4 (06:10→21:06)
[2019-03-06] MEDS ORDERED: PT OWN MED DRAWER 7, Y5N ONE (09:06)
[2019-03-06] MEDS: FERROUS SO4 325 MG TABLET (FP) PO SCH ×2 (09:47→21:05)
[2019-03-06] MEDS: ASPIRIN COATED 81 MG TABLET.EC PO SCH (09:47)
[2019-03-06] MEDS: HYDROCHLOROTHIAZIDE 12.5 MG CAPSULE (FP) PO SCH (09:47)
[2019-03-06] MEDS: COLLAGENASE CLOSTRIDIUM HIST. 30 GRAMS TUBE TP SCH (09:47)
[2019-03-06] MEDS: DOCUSATE SODIUM 100 MG CAPSULE (FP) PO SCH ×2 (09:47→21:05)
--- NOTE | 2019-03-06 11:48 | PN ---
Progress Note, Physician History of Present Illness: stable no new issues could not get mri - Current Medication List Current Medications: Active Medications Acetaminophen (Tylenol -) 650 mg PO Q6H PRN PRN Reason: Fever Or Pain Last Admin: 03/06/19 10:29 Dose: 650 mg Aspirin (Ecotrin -) 81 mg PO DAILY [facility] Last Admin: 03/06/19 09:47 Dose: 81 mg Carvedilol (Coreg -) 6.25 mg PO TID [facility] Last Admin: 03/06/19 06:10 Dose: 6.25 mg Collagenase (Santyl -) 1 applic TP DAILY [facility]; Protocol Last Admin: 03/06/19 09:47 Dose: 1 applic Docusate Sodium (Colace -) 100 mg PO BID [facility] Last Admin: 03/06/19 09:47 Dose: 100 mg Ferrous Sulfate (Feosol -) 325 mg PO BID [facility] Last Admin: 03/06/19 09:47 Dose: 325 mg Heparin Sodium (Porcine) (Heparin -) 5,000 unit SQ TID [facility] Last Admin: 03/06/19 06:10 Dose: 5,000 unit Hydrochlorothiazide (Hctz -) 12.5 mg PO DAILY [facility] Last Admin: 03/06/19 09:47 Dose: 12.5 mg Ampicillin Sodium/Sulbactam (Sodium 3 gm/ Sodium Chloride) 100 mls @ 200 mls/ hr IVPB Q8H-IV [facility] Last Admin: 03/06/19 09:49 Dose: 200 mls/hr Insulin Aspart (Novolog Vial Sliding Scale -) 1 vial SQ ACHS [facility]; Protocol Last Admin: 03/06/19 10:24 Dose: Not Given Tramadol HCl (Ultram -) 50 mg PO QID PRN PRN Reason: PAIN LEVEL 1-5 Last Admin: 03/06/19 09:47 Dose: 50 mg - Objective Vital Signs: Vital Signs Temperature 98.3 F 03/06/19 05:50 Pulse Rate 62 03/06/19 05:50 Respiratory Rate 18 03/06/19 09:00 Blood Pressure 143/63 03/06/19 05:50 O2 Sat by Pulse Oximetry (%) 100 03/06/19 09:00 Constitutional: Yes: Calm, Mild Distress Respiratory: Yes: Regular, CTA Bilaterally Gastrointestinal: Yes: Normal Bowel Sounds, Soft Musculoskeletal: Yes: WNL Extremities: Yes: Other Neurological: Yes: Alert, Oriented Psychiatric: Yes: Alert, Oriented Labs: CBC, BMP 03/04/19 09:00 03/04/19 09:00 INR, PTT INR 1.05 (0.83-1.09) 03/02/19 08:41 Assessment/Plan 73 y/o F with a significant past medical history of NIDDM, HTN, osteomyelitis, chronic left heel wound, and SVT dm left heel ulcer left leg cellulitis tenderness left leg plan cx report noted can switch to augmentin rest as per the team
--- NOTE | 2019-03-06 14:11 | PN ---
Teaching Attending Note Name of Resident: Juan Manuel Norris ATTENDING PHYSICIAN STATEMENT I saw and evaluated the patient. I reviewed the resident's note and discussed the case with the resident. I agree with the resident's findings and plan as documented. Seen and examined; please see resident note for further historical information. I personally verified all conroy historical information and exam findings. Personally interpreted all imaging and diagnostics and reviewed appropriate consults. I reviewed all labs and vital signs as per resident note and EMR as documented. I agree with the above assessment and plan unless supplemented by myself in the following. Spoke with the patient for a long period of time yesterday regarding her concerns. She was ambulatory to the bathroom and did agree with this and explains to me that she has difficulty walking due to her hip that has been chronic in nature but worsening over the past few weeks. She is concerned that she does not get an inpatient work-up for this that she will never get it worked up. I told her that physical therapy and following up with an outpatient primary care/orthopedic surgeon and obtaining a stand-up MRI due to her issues with the lay down MRI would probably be the best mode of action. After some discussion she became tearful and admitted that she had misunderstandings about her health care and she did admit that this was a good plan. She stated that she would be agreeable to discharge to a [facility] facility with the aforementioned follow-up. 10 item review of systems completed and is negative aside from as discussed in the subjective data in my own/the resident documentation. VS, labs, imaging reviewed NAD, AAO, resting comfortably in bed. RRR s1/2 no mgr Normal muscle tone, moves all 5 extremities with normal apparent strength Neck is supple, trachea midline, no hossein LN Lungs CTAB with sym expansion NT ND +BS no hossein organomegaly CN2-12 wnl; no FND NC AT EOMI PERRLA Normal mood, appropriate behavior, euthymic affect Foot with improved cellulitis compared to the prior descriptions, wrapped, she is able to stand on it. Assessment and plan: Patient presents to the hospital for failure lightless with chronic dependent edema and morbid obesity with a BMI of 48.3 which would inhibit regular wound healing. Her discharge has been complicated by acute on chronic hip pain which she initially consulted orthopedic surgery for. MRI was recommended but patient could not tolerate study secondary to her back pain, she requested stand -up MRI which can be performed as an outpatient as patient has no red flag signs or symptoms with specific denial of saddle anesthesia and bowel or bladder dysfunction. A bone scan was unable to be obtained secondary to the fact that the patient has been taking her metformin despite being instructed not to by nursing and our team. She claims the nurse informed her that she was supposed to be taking the medication but no nurses been identified to say such things, and it is suspected by staff that the patient self resumed her medication without instruction by staff. She was ambulatory this morning, walking to the bathroom to the bed. She initially denied this, but when I stated that I saw her physically walking she admitted and said that while it hurts and I should not be walking because it hurt so bad but I cannot. When I explained to her that she was able to walk and that walking would be good for her underlying pain she stated that she sometimes has issues doing this at home. I endorsed the need for physical therapy and ongoing rehab to her, and she was agreeable to this as I delineated above. Problems include: Left heel ulcer, resolving cellulitis with no drainage and resolving features with good granulation tisssue. Complete course of p.o. Augmentin per Dr. Lange. Musculoskeletal hip pain, ambulatory, orthopedic surgery recommended MRI but patient could not tolerate. They recommended bone scan the patient chose to take metformin. Negative x-rays. Follow-up with Ortho as outpatient; no red flag features of underlying neurovascular compromise nor is there any instability evident on examination. Diabetes mellitus Morbid obesity Prior osteomyelitis History of hypertension History of SVT History of iron deficiency anemia Potential UTI, [place] unlikely to be a true UTI with negative cultures. Patient completely and of foul-smelling urine several days ago.
--- NOTE | 2019-03-06 15:35 | CONSULT ---
Consult Consult Specialty:: orthopedics - History of Present Illness History of Present Illness: 73-year-old female complains of left hip pain which began a few weeks ago. She states the pain started one day but she does not recall a specific injury. Since then she has had worsening pain in the left hip which is worse with walking and use and better with rest. She has no pain at rest. She was sent for an MRI yesterday but was uncomfortable lying flat in the machine and was unable to get the MRI done. - History Source History Provided By: Patient - Past Medical History [employer]: Yes: Peripheral Neuropathy Cardio/Vascular: Yes: HTN, Other (PSVT) Endocrine: Yes: Diabetes Mellitus - Past Surgical History Past Surgical History: Yes: Appendectomy Additional Surgical History: Left 5th toe amputation - Alcohol/Substance Use Hx Alcohol Use: No History of Substance Use: reports: None - Smoking History Smoking history: Never smoked Have you smoked in the past 12 months: No Aproximately how many cigarettes per day: 0 - Social History Usual Living Arrangement: Alone ADL: Independent History of Recent Travel: No Home Medications - Allergies Allergies/Adverse Reactions: Allergies Allergy/AdvReac Type Severity Reaction Status Date / Time No Known Allergies Allergy Verified 03/01/19 14:06 - Home Medications Home Medications: Ambulatory Orders Glipizide 10 mg PO TID 04/27/18 Hydrochlorothiazide [Hctz -] 12.5 mg PO DAILY 04/27/18 Tramadol HCl 50 mg PO QID 03/01/19 Aspirin [Aspirin EC] 81 mg PO DAILY 03/02/19 Carvedilol 3.125 mg PO BID 03/02/19 Silver Sulfadiazine 1% Top Cr [Silvadene -] 1 applic TP BID 03/02/19 metFORMIN XR [Glucophage Xr -] 500 mg PO TID 03/02/19 Amoxicillin/Potassium Clav [Augmentin 500-125 Tablet] 1 each PO BID 7 Days #14 tablet 03/06/19 Collagenase Clostridium Hist. [Santyl -] 1 applic TP DAILY #1 tube 03/06/19 Docusate Sodium [Colace -] 100 mg PO BID PRN #60 capsule 03/06/19 Ferrous Sulfate [Feosol] 325 mg PO BID #60 ud 03/06/19 Review of Systems - Review of Systems Constitutional: reports: No Symptoms Eyes: reports: No Symptoms HENT: reports: No Symptoms Neck: reports: No Symptoms Cardiovascular: reports: No Symptoms Respiratory: reports: No Symptoms Gastrointestinal: reports: No Symptoms Genitourinary: reports: No Symptoms Breasts: reports: No Symptoms Reported Musculoskeletal: reports: Joint Pain Integumentary: reports: No Symptoms Neurological: reports: No Symptoms Endocrine: reports: No Symptoms Hematology/Lymphatic: reports: No Symptoms Psychiatric: reports: No Symptoms Physical Exam Vital Signs: Vital Signs Temperature 98.2 F 03/06/19 14:45 Pulse Rate 65 03/06/19 14:45 Respiratory Rate 18 03/06/19 14:45 Blood Pressure 130/78 03/06/19 14:45 O2 Sat by Pulse Oximetry (%) 100 03/06/19 09:00 Constitutional: Yes: Well Nourished, No Distress, Calm, Obese Musculoskeletal: Yes: Other (left hip: There is diffuse tenderness along the hip flexor anteriorly in the quadriceps musculature proximally. There is also mild tenderness over the greater trochanter. No pain with logroll. She has smooth range of motion of the hip with minimal discomfort. Most of her discomfort is when she is actively using the muscles and trying to flex the hip.no instability. Compartments are soft.) Labs: CBC, BMP 03/04/19 09:00 03/04/19 09:00 Imaging - Results X-ray: Report Reviewed, Image Reviewed (moderate arthritic changes. No fracture ) Assessment/Plan #1 left hip pain likely muscular -I discussed today's findings and treatment options with the patient. A nuclear medicine scan was ordered to rule any fracture. She would prefer doing an MRI. She states she had an MRI previously and was sedated and was able to tolerate the MRI. I recommended she get either test to rule out a fracture.
--- NOTE | 2019-03-06 16:00 | PN ---
Physical Exam: SUBJECTIVE: Patient seen and examined. Patient has been taking her own medications despite being told by the medical team that she should not do so as this will interfere with her medical management. MRI of her hip was ordered by Ortho which was unable to be completed as patient was not able to lay flat for the MRI. No acute events overnight. Again explained to patient that she should be taking her own medications while in the hospital. Complained that she was having muscle spasms in her left thigh again yesterday. Patient now requesting SNF placement. OBJECTIVE: Vital Signs Period Temp Pulse Resp BP Sys/Keenan Pulse Ox Last 24 Hr 98.2 F-98.8 F 62-66 18-19 130-143/63-78 100-100 GENERAL: The patient is awake, alert, and fully oriented, in no acute distress. HEAD: Normal with no signs of trauma. EYES: EOMI, no ptosis ENT: Moist mucous membranes NECK: trachea midline, supple LUNGS: Breath sounds equal, clear to auscultation bilaterally, no wheezes, no crackles, no accessory muscle use. HEART: Regular rate and rhythm, S1, S2 without murmur, rub or gallop. ABDOMEN: Soft, nontender, nondistended, normoactive bowel sounds, no guarding EXTREMITIES: 2+ pulses, warm, well-perfused, bilateral edema of lower extremities. 5/5 strength RLE. 2/5 strength LLE NEUROLOGICAL: Normal speech, gait stable with a rolling walker. sensation intact throughout SKIN: Warm, dry, normal turgor. Stage 1 ulcer on left heel, no foul odor or drainage noted. 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 erythema of left foot Laboratory Results - last 24 hr 03/05/19 03/05/19 03/06/19 16:28 16:29 10:30 POC Glucometer 61 77 176 Active Medications Generic Name Dose Route Start Last Admin Trade Name Freq PRN Reason Stop Dose Admin Acetaminophen 650 mg 03/02/19 03:32 03/06/19 10:29 Tylenol - PO 650 mg Q6H PRN Administration Fever Or Pain Aspirin 81 mg 03/02/19 10:00 03/06/19 09:47 Ecotrin - PO 81 mg DAILY [facility] Administration Carvedilol 6.25 mg 03/02/19 06:00 03/06/19 13:08 Coreg - PO 6.25 mg TID [facility] Administration Collagenase 1 applic 03/03/19 13:15 03/06/19 09:47 Santyl - TP 1 applic DAILY [facility] Administration Protocol Docusate Sodium 100 mg 03/04/19 22:00 03/06/19 09:47 Colace - PO 100 mg BID [facility] Administration Ferrous Sulfate 325 mg 03/04/19 13:45 03/06/19 09:47 Feosol - PO 325 mg BID [facility] Administration Heparin Sodium (Porcine) 5,000 unit 03/03/19 22:00 03/06/19 13:08 Heparin - SQ Not Given TID [facility] Hydrochlorothiazide 12.5 mg 03/02/19 10:00 03/06/19 09:47 Hctz - PO 12.5 mg DAILY [facility] Administration Ampicillin Sodium/Sulbactam 100 mls @ 200 mls/hr 03/02/19 15:15 03/06/19 09: 49 Sodium 3 gm/ Sodium Chloride IVPB 200 mls/hr Q8H-IV [facility] Administration Insulin Aspart 1 vial 03/02/19 07:00 03/06/19 10:24 Novolog Vial Sliding Scale - SQ Not Given ACHS [facility] Protocol ASSESSMENT/PLAN: 73 y/o/f with PMHx of NIDDM, HTN, osteomyelitis, chronic left heel wound, and SVT who presented to [facility] at the behest of her Program Development Manager due to a left lower extremity heel wound. #Left Lower Extremity Ulcer - Received Vancomycin and Zosyn in ED - D/Jeffy Unasyn - Started on Augmentin 500mg BID (started 03/06/19) - ID Consulted (Dr. Lange) - Blood Cultures negative to date - Wound culture growing normal skin neptali - MRI without evidence of osteomyelitis, abscess. Extensive soft tissue swelling surround the ankle noted, predominantly the medial dorsal aspect of the ankle compatible with extensive cellulitis - Podiatry consulted (Dr. Clarke) #Left Leg pain and weakness - Hip and lumbar/sacral spine showing degenerative disease - Ortho consulted (Dr. Villalpando) - MRI hip ordered to rule out stress fracture - patient unable to lay flat for MRI - Bone scan ordered as alternative - patient unable to get bone scan as she is taking her home metformin and glipizide medication - Tramadol home medication for pain - able to walk 50ft with PT with rolling walker #Anemia 2/2 possible GI source - GI consulted (Dr. DiGiorno) - patient refusing colonoscopy, EGD as per GI - patient refused abdomen U/S and morning labs including hep profile - Iron low at 42. Normal TIBC, Ferritin, transferrin low. - recommend GI outpatient follow up - started on Iron supplement - Stool for occult blood negative #NIDDM - ISS - BGMs - patient refusing to take Insulin at this time - taking own home meds despite being asked not to #HTN - Patient states she no longer takes Losartan - C/w Coreg and HCTZ #FEN - No standing fluids - Monitor and replete bobby as needed - Diabetic Diet #DVT ppx - SCDs - Heparin #Disposition - discharge pending placement in SNF vs. home Visit type - Emergency Visit Emergency Visit: Yes ED Registration Date: 03/01/19 Care time: The patient presented to the Emergency Department on the above date and was hospitalized for further evaluation of their emergent condition. - New Patient This patient is new to me today: No - Critical Care Critical Care patient: No ATTENDING PHYSICIAN STATEMENT I saw and evaluated the patient. I reviewed the resident's note and discussed the case with the resident. I agree with the resident's findings and plan as documented. SUBJECTIVE: OBJECTIVE: ASSESSMENT AND PLAN:
--- NOTE | 2019-03-06 20:45 | PN ---
Progress Note (short form) - Note Progress Note: FUV left heel. +resolving heel wound left, -drainage, +improved cellulitis granulating wound resolving cellulitis abx as per ID. Continue santyl. Will follow.
[2019-03-07] MEDS: ACETAMINOPHEN 325 MG TABLET (FP) PO PRN ×2 (03:43→11:17)
[2019-03-07] MEDS: CARVEDILOL 6.25 MG TABLET (FP) PO SCH (05:45)
[2019-03-07] MEDS: HEPARIN NA (PORCINE) 5,000 UNITS/ML 1ML VIAL SQ SCH (05:45)
[2019-03-07] MEDS: INSULIN SLIDING SCALE (NOVOLOG) 1 VIAL SQ SCH ×2 (06:07→11:13)
[2019-03-07] MEDS: traMADol HCL 50 MG TABLET PO PRN ×2 (06:08→12:31)
[2019-03-07] MEDS ORDERED: AMOX TR/POT CLAV 500MG/125MG TABLETS (FP) PO SCH (08:00)
--- NOTE | 2019-03-07 08:42 | DS ---
Physical Exam: SUBJECTIVE: Patient seen and examined. No acute events overnight. Discussed discharge planning and follow up with patient. Agreeable with outpatient sitting /standing MRI that she will be able to tolerate. Denies chest pain, abd pain, SOB, fever, chills. OBJECTIVE: Vital Signs Period Temp Pulse Resp BP Sys/Keenan Pulse Ox Last 24 Hr 98.0 F-98.2 F 58-65 18-20 130-153/65-78 100-100 PHYSICAL EXAM GENERAL: The patient is awake, alert, and fully oriented, in no acute distress. HEAD: Normal with no signs of trauma. EYES: EOMI, no ptosis, no scleral icterus ENT: Moist mucous membranes NECK: trachea midline, supple LUNGS: Breath sounds equal, clear to auscultation bilaterally, no wheezes, no crackles, no accessory muscle use. HEART: Regular rate and rhythm, S1, S2 without murmur, rub or gallop. ABDOMEN: Soft, nontender, nondistended, no guarding EXTREMITIES: 2+ pulses, warm, well-perfused, bilateral edema of lower extremities. 5/5 strength RLE. 2/5 strength LLE NEUROLOGICAL: Normal speech, gait not observed. sensation intact throughout. no facial droop SKIN: Warm, dry, normal turgor. Stage 1 ulcer on left heel, no foul odor or drainage noted. 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 Patient was started on Unasyn as per ID. Blood cultures have been negative to date and wound culture from patient's left foot grew only normal skin neptali. MRI was completed and did not show any evidence of osteomyelitis or abscess but did show evidence of cellulitis. Patient was seen by podiatry for continuing care. Orthopedics was consulted as patient was complaining of new onset left groin/leg pain. Per ortho patient would benefit from PT. MRI was ordered to rule out stress fracture but patient was unable to tolerate MRI as she was not able to lay flat. Bone Scan was ordered as an alternative but patient seen taking her home medications of Metformin and Glipizide despite being asked not to take her home medications multiple times and was therefore unable to get bone scan. Xray of hip and femur showing degenerative disease. Patient noted to be anemic but without evidence of bleeding. Refused further workup as per GI and refused morning labs multiple times including hep profile and also refused abd U/S. Patient noted to have low iron and started on Iron supplements. Patient medically stable for discharge with followup recommendations. 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 You had an MRI of your left foot completed which did not show any signs of infection in your bone but did show evidence of cellulitis (skin infection). You were treated with antibiotics for this infection and will need to go home with further antibiotics. Your were noted to be anemic (low red blood cell count) on this admission and were seen by gastroenterology but declined further workup. We recommend following up with gastroenterology after discharge for further workup and you were started on iron supplement pills. While admitted you were also seen by orthopedics for left leg pain that you stated has been going on for a while. Orthopedics recommended an MRI of your hip which we were unable to complete as you were not able to lie flat for the MRI. Orthopedics then ordered a bone scan for further workup but we are unable to complete this test as you were taking your own home medications. We recommend following up with orthopedics after discharge for further workup of your leg pain and recommend physical therapy. Medication Changes: 1. START Augmentin 500mg twice daily for 6 more days for continuing treatment of your cellulitis (skin infection). 2. CONTINUE to apply santyl to your left foot as directed by Podiatry. 3. START iron supplements 325mg twice daily to help improve your iron deficiency anemia. 4. START Colace 100mg twice daily as needed for constipation. Iron supplements can cause constipation. Follow up with the following physicians: 1. Please follow up with Dr. Tapia, your primary care provider. Please follow up within one week of discharge to discuss care of your medical conditions and the medications you were started on while in the hospital. 2. Recommended to follow up with Dr. Ferguson, Podiatry, within 1 week of discharge for further care of the wounds on your foot. 3. Recommended to follow up with Dr. Villalpando, Orthopedics, within 1-2 weeks of discharge for further care of your leg pain and weakness. 4. Recommended to follow up with Dr. Hurst, Gastroenterology, within 1-2 weeks of discharge for further workup of your anemia. Activity and Diet 1. Please take care to avoid trauma to your lower extremities. 2. Please monitor your diet as you need to intake foods with less salt and sugar. Continue all your other medications as prescribed. Please return to the ER if you have any signs or symptoms of chest pain, shortness of breath, uncontrollable fever, chills, nausea, vomiting, numbness, tingling, or weakness in any part of your body, changes in vision, or slurred speech. Please return to the ER if symptoms persist, worsen, or new symptoms arise. Referrals: Camacho Tapia MD [Primary Care Provider] - Jose Villalpando MD [Staff Physician] - Gilma Clarke DPM [Staff Physician] - Jarrod Hurst MD [Staff Physician] - Disposition: LONG TERM FACILITY - Home Medications Comprehensive Discharge Medication List: Ambulatory Orders Glipizide 10 mg PO TID 04/27/18 Hydrochlorothiazide [Hctz -] 12.5 mg PO DAILY 04/27/18 Tramadol HCl 50 mg PO QID 03/01/19 Aspirin [Aspirin EC] 81 mg PO DAILY 03/02/19 Carvedilol 3.125 mg PO BID 03/02/19 Silver Sulfadiazine 1% Top Cr [Silvadene -] 1 applic TP BID 03/02/19 metFORMIN XR [Glucophage Xr -] 500 mg PO TID 03/02/19 Amoxicillin/Potassium Clav [Augmentin 500-125 Tablet] 1 each PO BID 7 Days #14 tablet 03/06/19 Collagenase Clostridium Hist. [Santyl -] 1 applic TP DAILY #1 tube 03/06/19 Docusate Sodium [Colace -] 100 mg PO BID PRN #60 capsule 03/06/19 Ferrous Sulfate [Feosol] 325 mg PO BID #60 ud 03/06/19 This patient is new to me today: No Emergency Visit: Yes ED Registration Date: 03/01/19 Care time: The patient presented to the Emergency Department on the above date and was hospitalized for further evaluation of their emergent condition. Critical Care patient: No - Discharge Referral Referred to [facility] Med [facility] No ATTENDING PHYSICIAN STATEMENT I saw and evaluated the patient. I reviewed the resident's note and discussed the case with the resident. I agree with the resident's findings and plan as documented. SUBJECTIVE: OBJECTIVE: ASSESSMENT AND PLAN:
--- NOTE | 2019-03-07 10:32 | PN ---
Progress Note, Physician History of Present Illness: stable no new issues - Current Medication List Current Medications: Active Medications Acetaminophen (Tylenol -) 650 mg PO Q6H PRN PRN Reason: Fever Or Pain Last Admin: 03/07/19 03:43 Dose: 650 mg Amoxicillin/Clavulanate Potassium (Augmentin - 500mg Tablet) 1 tab PO BID@0800, 1730 [facility] Aspirin (Ecotrin -) 81 mg PO DAILY [facility] Last Admin: 03/06/19 09:47 Dose: 81 mg Carvedilol (Coreg -) 6.25 mg PO TID [facility] Last Admin: 03/07/19 05:45 Dose: 6.25 mg Collagenase (Santyl -) 1 applic TP DAILY [facility]; Protocol Last Admin: 03/06/19 09:47 Dose: 1 applic Docusate Sodium (Colace -) 100 mg PO BID [facility] Last Admin: 03/06/19 21:05 Dose: 100 mg Ferrous Sulfate (Feosol -) 325 mg PO BID [facility] Last Admin: 03/06/19 21:05 Dose: 325 mg Heparin Sodium (Porcine) (Heparin -) 5,000 unit SQ TID [facility] Last Admin: 03/07/19 05:45 Dose: 5,000 unit Hydrochlorothiazide (Hctz -) 12.5 mg PO DAILY [facility] Last Admin: 03/06/19 09:47 Dose: 12.5 mg Insulin Aspart (Novolog Vial Sliding Scale -) 1 vial SQ ACHS [facility]; Protocol Last Admin: 03/07/19 06:07 Dose: Not Given Tramadol HCl (Ultram -) 50 mg PO Q6H PRN PRN Reason: PAIN LEVEL 1-5 Last Admin: 03/07/19 06:08 Dose: 50 mg - Objective Vital Signs: Vital Signs Temperature 98.0 F 03/07/19 05:50 Pulse Rate 58 L 03/07/19 05:50 Respiratory Rate 20 03/07/19 05:50 Blood Pressure 153/74 03/07/19 05:50 O2 Sat by Pulse Oximetry (%) 100 03/06/19 20:23 Constitutional: Yes: No Distress, Calm Cardiovascular: Yes: S1, S2 Respiratory: Yes: Regular, CTA Bilaterally Gastrointestinal: Yes: Normal Bowel Sounds, Soft Musculoskeletal: Yes: WNL Extremities: Yes: WNL Neurological: Yes: Alert, Oriented Psychiatric: Yes: Alert, Oriented Labs: CBC, BMP 03/04/19 09:00 03/04/19 09:00 INR, PTT INR 1.05 (0.83-1.09) 03/02/19 08:41 Assessment/Plan 73 y/o F with a significant past medical history of NIDDM, HTN, osteomyelitis, chronic left heel wound, and SVT dm left heel ulcer left leg cellulitis tenderness left leg plan cx report noted augmentin rest as per the team
[2019-03-07 10:37] VITALS: BP 156/72; PULSE 66; TEMP 98.2
[2019-03-07] MEDS ORDERED: PT OWN MED DRAWER 7, Y5N ONE (10:42)
[2019-03-07] MEDS: ASPIRIN COATED 81 MG TABLET.EC PO SCH (10:43)
[2019-03-07] MEDS: DOCUSATE SODIUM 100 MG CAPSULE (FP) PO SCH (10:43)
[2019-03-07] MEDS: HYDROCHLOROTHIAZIDE 12.5 MG CAPSULE (FP) PO SCH (10:43)
[2019-03-07] MEDS: FERROUS SO4 325 MG TABLET (FP) PO SCH (10:43)
[2019-03-07] MEDS: COLLAGENASE CLOSTRIDIUM HIST. 30 GRAMS TUBE TP SCH (10:44)
--- NOTE | 2019-03-07 11:37 | PN ---
Teaching Attending Note Name of Resident: Juan Manuel Norris ATTENDING PHYSICIAN STATEMENT I saw and evaluated the patient. I reviewed the resident's note and discussed the case with the resident. I agree with the resident's findings and plan as documented. ATTENDING PHYSICIAN STATEMENT I saw and evaluated the patient. I reviewed the resident's note and discussed the case with the resident. I agree with the resident's findings and plan as documented. Seen and examined; please see resident note for further historical information. I personally verified all conroy historical information and exam findings. Personally interpreted all imaging and diagnostics and reviewed appropriate consults. I reviewed all labs and vital signs as per resident note and EMR as documented. I agree with the above assessment and plan unless supplemented by myself in the following. No further issues overnight 10 item review of systems completed and is negative aside from as discussed in the subjective data in my own/the resident documentation. VS, labs, imaging reviewed NAD, AAO, resting comfortably in bed. RRR s1/2 no mgr Normal muscle tone, moves all 5 extremities with normal apparent strength Neck is supple, trachea midline, no hossein LN Lungs CTAB with sym expansion NT ND +BS no hossein organomegaly CN2-12 wnl; no FND NC AT EOMI PERRLA Normal mood, appropriate behavior, euthymic affect Foot with improved cellulitis compared to the prior descriptions, wrapped, she is able to stand on it. Assessment and plan: Patient presents to the hospital for failure lightless with chronic dependent edema and morbid obesity with a BMI of 48.3 which would inhibit regular wound healing. Her discharge has been complicated by acute on chronic hip pain which she initially consulted orthopedic surgery for. MRI was recommended but patient could not tolerate study secondary to her back pain, she requested stand -up MRI which can be performed as an outpatient as patient has no red flag signs or symptoms with specific denial of saddle anesthesia and bowel or bladder dysfunction. A bone scan was unable to be obtained secondary to the fact that the patient has been taking her metformin despite being instructed not to by nursing and our team. She claims the nurse informed her that she was supposed to be taking the medication but no nurses been identified to say such things, and it is suspected by staff that the patient self resumed her medication without instruction by staff. She was ambulatory this morning, walking to the bathroom to the bed. She initially denied this, but when I stated that I saw her physically walking she admitted and said that while it hurts and I should not be walking because it hurt so bad but I cannot. When I explained to her that she was able to walk and that walking would be good for her underlying pain she stated that she sometimes has issues doing this at home. I endorsed the need for physical therapy and ongoing rehab to her, and she was agreeable to this as I delineated above. Problems include: Left heel ulcer, resolving cellulitis with no drainage and resolving features with good granulation tisssue. Complete course of p.o. Augmentin per Dr. Lange. Musculoskeletal hip pain, ambulatory, orthopedic surgery recommended MRI but patient could not tolerate. They recommended bone scan the patient chose to take metformin. Negative x-rays. Follow-up with Ortho as outpatient; no red flag features of underlying neurovascular compromise nor is there any instability evident on examination. Diabetes mellitus Morbid obesity Prior osteomyelitis History of hypertension History of SVT History of iron deficiency anemia Potential UTI, [place] unlikely to be a true UTI with negative cultures. Patient completely and of foul-smelling urine several days ago. She will be discharged to SNF is the patient wishes to go to a senior living facility due to her overall deconditioning. This is appropriate and we will be working with insurance to delineate placement. Appreciate work from case management/social work. We will be informing orthopedic surgery of the development with bone scan. There are no further issues with this patient, she has benefited maximally from this hospitalization Full code
--- NOTE | 2019-03-07 13:30 | PN ---
Progress Note (short form) - Note Progress Note: FUV left heel. +resolving heel wound left, -drainage, +improved cellulitis granulating wound resolving cellulitis abx as per ID. Continue santyl. Follow up in [facility].
== END 2019-03-07 14:52 | DRG 638 ==
LOC: JER 15:15 → JERBED 21:58 → J6S 03-02 02:43
PROVIDERS: ADMIT Internal Medicine; ATTEND Internal Medicine
DX: E11.621 Type 2 diabetes mellitus with foot ulcer (principal); L03.116 Cellulitis of left lower limb; Z68.42 Body mass index [BMI] 45.0-49.9, adult; L97.429 Non-pressure chronic ulcer of left heel and midfoot with unspecified severity; D50.9 Iron deficiency anemia, unspecified; E66.01 Morbid (severe) obesity due to excess calories; M25.552 Pain in left hip; I10 Essential (primary) hypertension
CPT/HCPCS: 36415; 72100-TC-FY; 73502-TC-LT-FY; 73630-TC-LT; 73718-TC-LT; 80053; 82272; 82607; 82728; 82746; 82962; 83540; 83550; 83605; 83735; 84100; 84466; 85025; 85027; 85044; 85610; 85730; 87040; 87070; 87086; 87205; 93005; 93010; 97116-GP; 97162-GP; 99283-25; G0463-25; J1644